=== PATIENT | female | born 1935 | race Caucasian/White ===

== ENCOUNTER 2017-02-02 09:07 | Emergency (ER) | payer MEDICARE ==
[2017-02-02 09:20] VITALS: BP 141/72; PULSE 69; RESP 18; TEMP 97.1
--- NOTE | 2017-02-02 09:35 | ED ---
General Adult HPI - General Chief complaint: Back Pain/Injury Stated complaint: fall at home Time Seen by Provider: 02/02/17 09:25 Source: patient, family, RN notes reviewed Mode of arrival: ambulatory Limitations: no limitations - History of Present Illness Initial comments: 81-year-old female presents to the emergency department with a chief complaint of right-sided rib pain. Patient states on she was given off a stepstool she was a step she felt into her cabinet to the right side. Patient states that she has pain right-sided rib she has pain when she pushes and pulls. She has pain now she sits down. Patient denies any nausea or vomiting with this. Patient states if she takes a big deep breath she was same pain as well. Patient was concerned that this does not see better so she thought that she should be evaluated. Patient denies any recent fever, chills, shortness of breath, chest pain, back pain, abdominal pain, nausea vomiting, numbness or tingling, dysuria or hematuria, constipation or diarrhea, headaches or visual changes, or any other current symptoms. - Related Data Home Medications Medication Instructions Recorded Confirmed Aspirin 81 mg PO DAILY 01/02/15 05/08/16 Biotene Lozenges 1 lozenge PO Q4H PRN 01/02/15 05/08/16 Biotin 5 mg PO DAILY 01/02/15 05/08/16 Calcium Carbonate/Vitamin D3 1 tab PO DAILY 01/02/15 05/08/16 [Calcium 600-Vit D3 400 Tablet] Hydroxychloroquine Sulfate 200 mg PO BID 01/02/15 05/08/16 [Plaquenil] Valsartan/Hydrochlorothiazide 1 tab PO DAILY 01/02/15 05/08/16 [Diovan Hct 80-12.5 mg Tablet] Carboxymethylcellulose Sodium 1 drop BOTH EYES BID PRN 11/13/15 05/08/16 [Refresh Tears] Previous Rx's Medication Instructions Recorded traMADol HCl [Ultram] 50 mg PO Q6H PRN #20 tab 02/02/17 Allergies Allergy/AdvReac Type Severity Reaction Status Date / Time amoxicillin Allergy Rash/Hives Verified 02/02/17 09:20 clindamycin Allergy Rash/Hives Verified 02/02/17 09:20 sulfamethoxazole Allergy Rash/Hives Verified 02/02/17 09:20 [From Bactrim] trimethoprim [From Bactrim] Allergy Rash/Hives Verified 02/02/17 09:20 Review of Systems ROS Statement: Those systems with pertinent positive or pertinent negative responses have been documented in the HPI. ROS Other: All systems not noted in ROS Statement are negative. Past Medical History Past Medical History: Hypertension, Pneumonia Additional Past Medical History / Comment(s): Sjogrens syndrome History of Any Multi-Drug Resistant Organisms: None Reported Past Surgical History: Hysterectomy Past Anesthesia/Blood Transfusion Reactions: No Reported Reaction Past Psychological History: No Psychological Hx Reported Smoking Status: Never smoker Past Alcohol Use History: Daily Past Drug Use History: None Reported - Past Family History Father Family Medical History: Chest Pain / Angina Mother Additional Family Medical History / Comment(s): lived to be 92yrs old General Exam Limitations: no limitations General appearance: alert, in no apparent distress Eye exam: Present: normal appearance, PERRL, EOMI. Absent: scleral icterus, conjunctival injection, periorbital swelling ENT exam: Present: normal exam, mucous membranes moist Neck exam: Present: normal inspection. Absent: tenderness, meningismus, lymphadenopathy Respiratory exam: Present: normal lung sounds bilaterally, chest wall tenderness (right lateral with associated ecchymosis). Absent: respiratory distress, wheezes, rales, rhonchi, stridor Cardiovascular Exam: Present: regular rate, normal rhythm, normal heart sounds. Absent: systolic murmur, diastolic murmur, rubs, gallop, clicks Extremities exam: Present: normal inspection, full ROM, normal capillary refill. Absent: tenderness, pedal edema, joint swelling, calf tenderness Back exam: Present: normal inspection, full ROM. Absent: tenderness Neurological exam: Present: alert, oriented X3 Psychiatric exam: Present: normal affect, normal mood Skin exam: Present: warm, dry, intact, normal color. Absent: rash Course Vital Signs 02/02/17 09:17 Temperature 97.1 F L Pulse Rate 69 Respiratory 18 Rate Blood Pressure 141/72 O2 Sat by Pulse 96 Oximetry Medical Decision Making - Medical Decision Making 81-year-old female presents emergency Department with a chief complaint of right -sided rib pain after a fall. At this time we will do an x-ray of the patient' s ribs. At this time patient x-rays have been reviewed. At this time there does not appear to be displaced rib fracture. This and we will treat the patient with medications to help with her pain. We did discuss follow-up return parameters all the questions. She stated that she understood and she is in agreement with this plan. All questions have been answered. She'll be discharged. - Radiology Data Radiology results: report reviewed, image reviewed Disposition Clinical Impression: Contusion of rib on right side Disposition: HOME SELF-CARE Condition: Stable Instructions: Rib Contusion (ED) Additional Instructions: Please use medication as discussed. Please follow up with family doctor if symptoms have not improved over the next two days. Please return to the emergency room if your symptoms increase or worsen or for any other concerns. Prescriptions: traMADol HCl [Ultram] 50 mg PO Q6H PRN #20 tab PRN Reason: Pain Referrals: Param Vazquez MD [Primary Care Provider] - 1-2 days Time of Disposition: 09:52
--- NOTE | 2017-02-02 09:45 | XR ---
EXAMINATION TYPE: XR ribs RT w pa chest x-ray , 3 VIEWS DATE OF EXAM ORDERED: 02/02/2017 HISTORY: Pain. COMPARISON: None. FINDINGS: The lungs are overinflated. The heart is enlarged. The lungs are clear. Pleural spaces are clear. No pneumothorax is seen. No displaced rib fracture is seen. IMPRESSION: 1. COPD 2. CARDIOMEGALY. 3. I DO NOT IDENTIFY A DISPLACED RIB FRACTURE AT THIS TIME.
== END 2017-02-02 10:07 | disposition home or self-care (01) ==
LOC: EC 09:07
DX: S20.211A Contusion of right front wall of thorax, initial encounter (principal); I10 Essential (primary) hypertension; Z79.82 Long term (current) use of aspirin; Z79.899 Other long term (current) drug therapy; Z88.0 Allergy status to penicillin; Z88.1 Allergy status to other antibiotic agents; W01.0XXA Fall on same level from slipping, tripping and stumbling without subsequent striking against object, initial encounter; Y92.009 Unspecified place in unspecified non-institutional (private) residence as the place of occurrence of the external cause
CPT/HCPCS: 99283

== ENCOUNTER → 2017-04-29 | Outpatient (CLI) | payer MEDICARE ==
--- NOTE | 2017-04-30 09:11 | MM ---
Reason for exam: screening (asymptomatic). Last mammogram was performed 1 year and 2 months ago. History: Patient is postmenopausal. Stereotactic core biopsy of the left breast, September 03, 2004. Took estrogen for 10 years beginning at age 48. Physical Findings: A clinical breast exam by your physician is recommended on an annual basis and results should be correlated with mammographic findings. MG 3D Screening Mammo W/Cad Bilateral CC and MLO view(s) were taken. Prior study comparison: March 06, 2016, bilateral MG 3d screening mammo w/cad. November 25, 2014, bilateral MG screening mammo w CAD. October 07, 2013, bilateral MG screening mammo w CAD. The breast tissue is heterogeneously dense. This may lower the sensitivity of mammography. Finding: There are typically benign vascular, dystrophic, round, linear calcifications in both breasts. There is no discrete abnormality. ASSESSMENT: Benign, BI-RAD 2 RECOMMENDATION: Routine screening mammogram of both breasts in 1 year.
== END | disposition home or self-care (01) ==
LOC: RADMAMWWP 07:07
PROVIDERS: ATTEND Obstetrics & Gynecology
DX: Z12.31 Encounter for screening mammogram for malignant neoplasm of breast (principal)
CPT/HCPCS: 77063; 77067

== ENCOUNTER → 2017-06-04 | Outpatient (CLI) | payer MEDICARE ==
--- NOTE | 2017-06-04 12:10 | BD ---
EXAMINATION TYPE: MG DEXA axial skeleton. DATE OF EXAM: 06/04/2017 COMPARISON: Disorder of bone. Postmenopausal female. Osteoporosis screening. CLINICAL HISTORY: 2014 Height: 4'10 Weight: 117 FRAX RISK QUESTIONS: Alcohol (3 or more units per day): no Family History (Parent hip fracture): yes Glucocorticoids (More than 3mos): no (Ex: prednisone, prednisolone, methylprednisolone, dexamethasone, and hydrocortisone). History of Fracture in Adulthood: no Secondary Osteoporosis: 1. Type 1 Diabetes: no 2. Hyperthyroidism: no 3. Menopause before 45: no 4. Malnutrition: no 5. Chronic liver disease: no Rheumatoid Arthritis: no Current Tobacco Use: no RISK FACTORS HISTORY OF: Postmenopausal woman: MEDICATIONS: Additional Medications: high blood pressure Additional History: EXAM MEASUREMENTS: Bone mineral densitometry was performed using the [employer]. Bone mineral density as measured about the Lumbar spine is: ----- L1-L4(G/cm2): 0.810 T Score Values are as follows: ----- L2: -3.2 ----- L3: -2.7 ----- L4: -2.8 ----- L1-L4: -3.1 Bone mineral density has: Decreased -4.4% since study of: 11/25/2014 Bone mineral density about the R hip (g/cm2): 0.817 Bone mineral density about the L hip (g/cm2): 0.698 T Score values are as follows: -----R Neck: -1.6 -----L Neck: -2.4 -----R Total: -0.8 -----L Total: -1.6 Bone mineral density has: Decreased -2.3% since study of: 11/25/2014 IMPRESSION: Osteoporosis (T Score less than -2.5) as noted by T Score values at the lumbar spine. There is increased fracture risk and therapy is usually indicated based on age. Re-Screen 1-2 years. NOTE: T-SCORE=SD OF THE YOUNG ADULT MEAN.
== END | disposition home or self-care (01) ==
LOC: RADBDWWP 08:39
PROVIDERS: ATTEND Obstetrics & Gynecology
DX: M81.0 Age-related osteoporosis without current pathological fracture (principal)
CPT/HCPCS: 77080

== ENCOUNTER → 2017-11-03 | Outpatient (CLI) | payer MEDICARE ==
--- NOTE | 2017-11-03 17:59 | XR ---
EXAMINATION TYPE: XR chest 2V DATE OF EXAM: 11/03/2017 COMPARISON: 02/02/2017 HISTORY: Cough TECHNIQUE: Frontal and lateral views of the chest are obtained. FINDINGS: There is some infiltrate at the right cardiac border that is probably in the right middle lobe. The other lung burton are clear. Thoracic aorta is atheromatous. There is no pleural effusion. Bony thorax is intact. IMPRESSION: New right middle lobe pneumonia compared to old exam.
== END | disposition home or self-care (01) ==
LOC: RADXRMAIN 16:34
PROVIDERS: ATTEND Internal Medicine
DX: J18.9 Pneumonia, unspecified organism (principal)
CPT/HCPCS: 71046

== ENCOUNTER → 2018-06-15 | Outpatient (CLI) | payer MEDICARE ==
--- NOTE | 2018-06-16 13:17 | MM ---
Reason for exam: screening (asymptomatic). Last mammogram was performed 1 year and 2 months ago. History: Patient is postmenopausal. Stereotactic core biopsy of the left breast, September 03, 2004. Took estrogen for 10 years beginning at age 48. Physical Findings: A clinical breast exam by your physician is recommended on an annual basis and results should be correlated with mammographic findings. MG 3D Screening Mammo W/Cad Bilateral CC and MLO view(s) were taken. Prior study comparison: April 29, 2017, bilateral MG 3d screening mammo w/cad. March 06, 2016, bilateral MG 3d screening mammo w/cad. The breast tissue is heterogeneously dense. This may lower the sensitivity of mammography. Benign appearing bilateral calcifications. No suspicious abnormality. No significant changes when compared with prior studies. ASSESSMENT: Benign, BI-RAD 2 RECOMMENDATION: Routine screening mammogram of both breasts in 1 year.
== END | disposition home or self-care (01) ==
LOC: RADMAMWWP 07:55
PROVIDERS: ATTEND Obstetrics & Gynecology
DX: Z12.31 Encounter for screening mammogram for malignant neoplasm of breast (principal)
CPT/HCPCS: 77063; 77067

== ENCOUNTER → 2020-01-28 | Outpatient (CLI) | payer MEDICARE ==
--- NOTE | 2020-01-31 08:43 | MM ---
Reason for exam: screening (asymptomatic). Last mammogram was performed 1 year and 7 months ago. History: Patient is postmenopausal. Stereotactic core biopsy of the left breast, September 03, 2004. Took estrogen for 10 years beginning at age 48. Physical Findings: A clinical breast exam by your physician is recommended on an annual basis and results should be correlated with mammographic findings. MG 3D Screening Mammo W/Cad Bilateral CC and MLO view(s) were taken. Prior study comparison: June 15, 2018, bilateral MG 3d screening mammo w/cad. April 29, 2017, bilateral MG 3d screening mammo w/cad. The breast tissue is heterogeneously dense. This may lower the sensitivity of mammography. Benign calcifications. No significant changes when compared with prior studies. ASSESSMENT: Benign, BI-RAD 2 RECOMMENDATION: Routine screening mammogram of both breasts in 1 year.
== END | disposition home or self-care (01) ==
LOC: RADMAMWWP 07:08
PROVIDERS: ATTEND Obstetrics & Gynecology
DX: Z12.31 Encounter for screening mammogram for malignant neoplasm of breast (principal)
CPT/HCPCS: 77063; 77067

== ENCOUNTER → 2020-08-10 | Outpatient (CLI) | payer MEDICARE ==
--- NOTE | 2020-08-10 14:08 | CT ---
EXAMINATION TYPE: CT abdomen pelvis wo con DATE OF EXAM: 08/10/2020 HISTORY: LLQ pain CT DLP: 223.2 mGycm. Automated Exposure Control for Dose Reduction was Utilized. TECHNIQUE: CT scan of the abdomen and pelvis is performed without oral or IV contrast. COMPARISON: NONE FINDINGS: Within the limitations of a non-contrast study, the following observations are made. LUNG BASES: Cardiomegaly is present. Coronary artery calcification in the RCA distribution. LIVER/GB: There are 2 calcified gallstones measuring 1.6 cm in diameter. No surrounding inflammatory change. PANCREAS: No significant abnormality is seen. SPLEEN: No significant abnormality is seen. ADRENALS: No significant abnormality is seen. KIDNEYS: No renal stones or hydronephrosis seen bilaterally. Mildly distended bladder. BOWEL: Suboptimal evaluation of bowel without enteric contrast. No suspicious small or large bowel di latation. Moderate to severe fecal prominence in the cecum which is wandering into the anterior midab domen axial image 38. There is [id number] diffuse colonic fecal prominence otherwise. Mild scat tered colonic diverticula with slightly more prominent diverticulosis in the sigmoid colon. GENITAL ORGANS: Uterus is surgically absent or markedly atrophic. Scattered right-sided pelvic phlebo liths. LYMPH NODES: No greater than 1cm abdominal or pelvic lymph nodes are appreciated. OSSEOUS STRUCTURES: No significant abnormality is seen. OTHER: Moderate to severe calcified plaque of the aorta extends into branch vessels. Mild to moderate narrowing of both hip joints with mild acetabular spurring. IMPRESSION: Colonic diverticulosis without CT evidence for acute diverticulitis. Moderate diffuse col onic fecal stasis. No bowel obstruction.
== END | disposition home or self-care (01) ==
LOC: RADCTMAIN 13:17
PROVIDERS: ATTEND Internal Medicine
DX: K57.30 Diverticulosis of large intestine without perforation or abscess without bleeding (principal); K59.89 Other specified functional intestinal disorders
CPT/HCPCS: 74176

== ENCOUNTER → 2021-01-23 | Outpatient (CLI) | payer MEDICARE ==
--- NOTE | 2021-01-23 15:45 | XR ---
EXAMINATION TYPE: XR chest 2V DATE OF EXAM: 01/23/2021 COMPARISON: 11/03/2017 HISTORY: 85-year-old female R05, cough TECHNIQUE: Frontal and lateral views FINDINGS: Heart upper limits of normal in size. Scattered metastatic calcifications within the aorta. Biapical pleural-parenchymal scarring. Hyperinflation. Mild interstitial prominence is unchanged. No consolida tion or pleural effusion. Tiny Bochdalek hernia posteriorly in the lower lungs on the lateral view. IMPRESSION: COPD and chronic changes. No definite acute process.
[2021-01-23 18:59] LABS: Basophils # (A) 0.02 X 10*3/uL (0.00-0.10); Basophils % (A) 0.3 %; Eosinophils # (A) 0.17 X 10*3/uL (0.04-0.35); Eosinophils % (A) 2.6 %; HCT 39.7 % (37.2-46.3); HGB 12.9 g/dL (12.0-15.0); Lymphocytes # (A) 1.47 X 10*3/uL (0.90-5.00); Lymphocytes % (A) 22.1 %; MCH 30.6 pg (27.0-32.0); MCHC 32.5 g/dL (32.0-37.0); MCV 94.1 fL (80.0-97.0); Mean Platelet Volume 11.1 fL (9.5-12.2); Monocytes # (A) 0.66 X 10*3/uL (0.20-1.00); Monocytes % (A) 9.9 %; Neutrophils # (A) 4.29 X 10*3/uL (1.80-7.70); Neutrophils % (A) 64.6 %; Platelet Count 239 X 10*3/uL (140-440); RBC 4.22 X 10*6/uL (4.10-5.20); RDW 12.2 % (11.5-14.5); WBC 6.64 X 10*3/uL (4.50-10.00)
[2021-01-23 22:00] LABS: Erythrocyte Sedimentation Rate 44 mm/Hr (0-30)
[2021-01-24 21:49] LABS: Protein, Total 6.9 g/dL (6.2-8.2)
[2021-01-24 22:43] LABS: African American GFR (CKD) 115.7 (60.0-200.0); Anion Gap 14.9 mmol/L (4.00-12.00); Blood Urea Nitrogen 11.7 mg/dL (9.0-27.0); Calcium 10.4 mg/dL (8.7-10.3); Carbon Dioxide 24.6 mmol/L (21.6-31.8); Non-African American GFR(CKD) 99.8 (60.0-200.0); Potassium 3.6 mmol/L (3.5-5.5)
== END | disposition home or self-care (01) ==
LOC: LABWHC1 13:09
PROVIDERS: ATTEND Internal Medicine Rheumatology
DX: M06.4 Inflammatory polyarthropathy (principal); M81.0 Age-related osteoporosis without current pathological fracture; J44.9 Chronic obstructive pulmonary disease, unspecified; Z79.01 Long term (current) use of anticoagulants
CPT/HCPCS: 36415; 71046; 80051; 82306; 82310; 82565; 82784; 82787; 84165; 84443; 84450; 84460; 84520; 85025; 85652; 86140

== ENCOUNTER → 2021-02-05 | Outpatient (CLI) | payer MEDICARE ==
--- NOTE | 2021-02-05 15:02 | BD ---
EXAMINATION TYPE: Axial Bone Density DATE OF EXAM: 02/05/2021 COMPARISON: NONE CLINICAL HISTORY: M [age] Height: 4 FT 10 IN Weight: 111 FRAX RISK QUESTIONS: Alcohol (3 or more units per day): NO Family History (Parent hip fracture): YES Glucocorticoids (More than 3mos): NO (Ex: prednisone, prednisolone, methylprednisolone, dexamethasone, and hydrocortisone). History of Fracture in Adulthood: NO Secondary Osteoporosis: 1. Type 1 Diabetes: NO 2. Hyperthyroidism: NO 3. Menopause before 45: NO 4. Malnutrition: NO 5. Chronic liver disease: NO Rheumatoid Arthritis: NO Current Tobacco Use: NO RISK FACTORS HISTORY OF: Surgery to Spine/Hip(right/left)/Wrist (right/left): NO Family History of Osteoporosis: NO Active: YES Diet low in dairy products/other sources of calcium: NO Postmenopausal woman: AGE 48 Take estrogen and/or progesterone medications: TOOK APPROX 3 YEARS Lost more than 2 inches in height since high school: NO MEDICATIONS: Additional Medications: BLOOD PRESSURE MEDS, EYE DROPS FOR GLAUCOMA, Additional History: EXAM MEASUREMENTS: Bone mineral densitometry was performed using the [employer]. Bone mineral density as measured about the Lumbar spine is: ----- L1-L4(G/cm2): 0.898 T Score Values are as follows: ----- L2: -3.1 ----- L3: -2.2 ----- L4: -1.5 ----- L1-L4: -2.3 Bone mineral density has: INCREASED 10.0 % since study of: 2018 Bone mineral density about the R hip (g/cm2): 0.734 Bone mineral density about the L hip (g/cm2): 0.688 T Score values are as follows: -----R Neck: -2.2 -----L Neck: -2.5 -----R Total: -1.6 -----L Total: -1.3 Bone mineral density has: DECREASED -4.2 % since study of: 2018 IMPRESSION: Osteopenia is borderline (T Score between -2.5 and -1). There is slightly increased risk of fracture and the patient may be considered for treatment. Re-Screen 2-5 years. NOTE: T-SCORE=SD OF THE YOUNG ADULT MEAN.
== END | disposition home or self-care (01) ==
LOC: RADBDWWP 10:48
PROVIDERS: ATTEND Internal Medicine Rheumatology
DX: M85.89 Other specified disorders of bone density and structure, multiple sites (principal); Z78.0 Asymptomatic menopausal state
CPT/HCPCS: 77080

== ENCOUNTER → 2021-05-18 | Outpatient (CLI) | payer MEDICARE ==
[2021-05-19 01:13] LABS: African American GFR (CKD) 91.6 (60.0-200.0); Calcium 10.2 mg/dL (8.7-10.3)
[2021-05-19 01:15] LABS: Basophils # (A) 0.02 X 10*3/uL (0.00-0.10); Basophils % (A) 0.3 %; Eosinophils # (A) 0.22 X 10*3/uL (0.04-0.35); Eosinophils % (A) 3.3 %; HCT 37.3 % (37.2-46.3); HGB 11.6 g/dL (12.0-15.0); Lymphocytes # (A) 1.53 X 10*3/uL (0.90-5.00); Lymphocytes % (A) 23.2 %; MCH 27.8 pg (27.0-32.0); MCHC 31.1 g/dL (32.0-37.0); MCV 89.4 fL (80.0-97.0); Mean Platelet Volume 11.7 fL (9.5-12.2); Monocytes # (A) 0.76 X 10*3/uL (0.20-1.00); Monocytes % (A) 11.5 %; Neutrophils # (A) 4.04 X 10*3/uL (1.80-7.70); Neutrophils % (A) 61.4 %; Platelet Count 274 X 10*3/uL (140-440); RBC 4.17 X 10*6/uL (4.10-5.20); RDW 14.3 % (11.5-14.5); WBC 6.59 X 10*3/uL (4.50-10.00)
[2021-05-19 02:20] LABS: Erythrocyte Sedimentation Rate 62 mm/Hr (0-30)
[2021-05-19 04:35] LABS: C Reactive Protein 1.5 mg/dL (0.00-0.80)
== END | disposition home or self-care (01) ==
LOC: LABWHC1 13:58
PROVIDERS: ATTEND Internal Medicine Rheumatology
DX: M06.4 Inflammatory polyarthropathy (principal); M81.0 Age-related osteoporosis without current pathological fracture; M25.50 Pain in unspecified joint
CPT/HCPCS: 36415; 82306; 82310; 82565; 84450; 84460; 84520; 85025; 85652; 86140

== ENCOUNTER → 2021-06-20 | Outpatient (CLI) | payer MEDICARE ==
--- NOTE | 2021-06-20 16:07 | XR ---
EXAMINATION TYPE: XR chest 2V DATE OF EXAM: 06/20/2021 COMPARISON: 01/15/2021 INDICATION: Short of breath cough x3 months TECHNIQUE: Single frontal view of the chest is obtained. FINDINGS: The heart size is normal. The pulmonary vasculature is normal. The lungs are clear. There is hyperinflation with increased AP diameter and flattened diaphragms. Correlate for COPD. IMPRESSION: 1. No acute pulmonary process. 2. COPD.
== END | disposition home or self-care (01) ==
LOC: RADXRMAIN 14:59
PROVIDERS: ATTEND Internal Medicine
DX: J44.9 Chronic obstructive pulmonary disease, unspecified (principal)
CPT/HCPCS: 71046

== ENCOUNTER → 2021-07-02 | Outpatient (CLI) | payer MEDICARE ==
[~2021-07-02] MED LIST: SODIUM CHLORIDE 0.9% 500 ML 500 ML in EMPTY BAG 1 BAG IV PRN; ZOLEDRONIC ACID 5 MG in SODIUM CHLORIDE 0.9% 100 ML IV NR
[2021-07-02 10:15] VITALS: BP 139/64; PULSE 92; RESP 16; TEMP 98
== END ==
LOC: PROCWHC3 09:55
PROVIDERS: ATTEND Internal Medicine Rheumatology
DX: M81.0 Age-related osteoporosis without current pathological fracture (principal); Z88.1 Allergy status to other antibiotic agents; Z88.2 Allergy status to sulfonamides
CPT/HCPCS: 96365; J3489

== ENCOUNTER 2021-10-28 22:59 | Inpatient (IN) | payer MEDICARE ==
[2021-10-29] MEDS ORDERED: MORPHINE SULFATE 4 MG/ML SYRINGE IV STA (02:05)
[2021-10-29 02:16] LABS: ALT 13 U/L (4-34); AST 29 U/L (14-36); African American GFR (CKD) >90 (>60 ml/min/1.73 sqM); Albumin 3.2 g/dL (3.5-5.0); Alkaline Phosphatase 96 U/L (38-126); Amylase 41 U/L (30-110); Anion Gap 8 mmol/L; Basophils % (A) 0 %; Blood Urea Nitrogen 20 mg/dL (7-17); Calcium 8.7 mg/dL (8.4-10.2); Carbon Dioxide 27 mmol/L (22-30); Chloride 93 mmol/L (98-107); Eosinophils # (A) 0.1 k/uL (0-0.7); Eosinophils % (A) 1 %; Glucose 125 mg/dL (74-99); HCT 40.2 % (34.0-46.0); HGB 13.4 gm/dL (11.4-16.0); Lipase 19 U/L (23-300); Lymphocytes # (A) 0.7 k/uL (1.0-4.8); Lymphocytes % (A) 4 %; MCH 28.7 pg (25.0-35.0); MCHC 33.2 g/dL (31.0-37.0); MCV 86.5 fL (80.0-100.0); Mean Platelet Volume 7.7; Monocytes # (A) 0.9 k/uL (0-1.0); Monocytes % (A) 5 %; Neutrophils # (A) 17.2 k/uL (1.3-7.7); Neutrophils % (A) 90 %; Non-African American GFR(CKD) 89 (>60 ml/min/1.73 sqM); Platelet Count 289 k/uL (150-450); Potassium 3.2 mmol/L (3.5-5.1); RBC 4.65 m/uL (3.80-5.40); RDW 13.7 % (11.5-15.5); Sodium 128 mmol/L (137-145); Total Bilirubin 0.7 mg/dL (0.2-1.3); Total Protein 6.8 g/dL (6.3-8.2); WBC 19.1 k/uL (3.8-10.6)
[2021-10-29 02:28] LABS: C Reactive Protein 15.8 mg/dL (<1.0)
--- NOTE | 2021-10-29 02:48 | XR ---
EXAM: XR Abdomen, 2 Views CLINICAL HISTORY: ITS.REASON XR Reason: constipation, abdominal pain TECHNIQUE: Frontal view of the abdomen/pelvis with upright view of the abdomen. COMPARISON: No relevant prior studies available. FINDINGS: Intraperitoneal space: No free air. Gastrointestinal tract: Mildly dilated loops of small bowel with multiple air-fluid levels. Bones/joints: No acute findings. IMPRESSION: Dilated loops of small bowel with multiple air-fluid levels suspicious for small bowel obstruction.
[2021-10-29] MEDS ORDERED: ONDANSETRON 4 MG/2 ML VIAL IVP PRN (05:23)
[2021-10-29] MEDS ORDERED: MORPHINE SULFATE 4 MG/ML SYRINGE IV PRN (05:23)
[2021-10-29] MEDS ORDERED: NALOXONE 0.4 MG/ML 1 ML VIAL IV PRN (05:23)
--- NOTE | 2021-10-29 07:11 | CT ---
EXAMINATION TYPE: CT abdomen pelvis wo con CT DLP: 282 mGycm, Automated exposure control for dose reduction was used. DATE OF EXAM: 10/29/2021 5:50 AM COMPARISON: CT abdomen pelvis most recent from 08/10/2020 . CLINICAL INDICATION:Female, 86 years old with history of bowel obstruction; TECHNIQUE: Standard CT of the abdomen and pelvis following the administration of 100 cc of Isovue 3 00 IV contrast material. Coronal and sagittal reformats were performed. FINDINGS: LOWER CHEST: Unremarkable ABDOMEN LIVER: Unremarkable GALLBLADDER AND BILE DUCTS: Layering increased densities within the lumen consistent with gallstones are present. PANCREAS: Unremarkable. SPLEEN: Unremarkable. ADRENAL GLANDS: Unremarkable. KIDNEYS AND URETERS: No evidence of hydronephrosis or renal calculus. The ureters are unremarkable. PELVIS BLADDER: Bladder is distended REPRODUCTIVE: The uterus is atrophic or surgically absent ABDOMEN & PELVIS STOMACH AND BOWEL: Evaluation limited without IV and oral contrast. Multiple loops of bowel throughou t the abdomen aren't dilated air-fluid levels. A short segment of small bowel in the lower abdomen do es demonstrate circumferential wall thickening which may just be due to complete distention. No defin itive transition point identified. The colon and distal ileum are relatively nondistended. Multiple s cattered colonic diverticula present. Small hiatal hernia is present. PERITONEUM: No evidence of pneumoperitoneum. Trace fluid is seen from the liver. VASCULATURE: Severe atherosclerotic calcifications are present throughout the abdominal aorta and its branches. No evidence of aortic aneurysm. MUSCULOSKELETAL: No acute osseous abnormalities. Multilevel disc degeneration changes most pronounced at L2 superior endplate with Schmorl's node present. LYMPH NODES: No gross evidence for lymphadenopathy. SOFT TISSUE/ABDOMINAL WALL: Unremarkable IMPRESSION: 1. Multiple dilated loops of small bowel with air-fluid levels and small bowel feces in the presence of a nondistended colon and distal ileum is concerning for partial versus early complete bowel obstr uction. Dedicated small bowel follow-through is recommended to rule out obstruction. No definitive tr ansition point identified. 2. Colonic diverticulosis. 3. Cholelithiasis. 4. Small hiatal hernia. 5. Trace ascites. 6. Cardiomegaly.
--- NOTE | 2021-10-29 07:22 | ED ---
Abdominal Pain HPI - General Chief Complaint: Abdominal Pain Stated Complaint: Abdominal Pain Time Seen by Provider: 10/29/21 00:30 Source: patient Mode of arrival: ambulatory Limitations: no limitations - History of Present Illness Initial Comments: 's patient is an 86-year-old woman with history of Sjogren's syndrome, who presents with complaint that she has been having lower abdominal pain and bloating going back up to 3 days now. Patient states also that she does not feel like she is passing normal bowel movements. She did have a bowel movement yesterday but it did not seem normal. She is passing flatus. She is having nausea and distention. No change in urination. MD Complaint: abdominal pain Onset/Timin -: days(s) Location: LLQ, RLQ Radiation: none Migration to: no migration Severity: moderate Quality: cramping, fullness Consistency: constant Improves With: nothing Worsens With: nothing Associated Symptoms: nausea, constipation - Related Data Home Medications Medication Instructions Recorded Confirmed Hydroxychloroquine Sulfate 400 mg PO DAILY 01/02/15 10/29/21 [Plaquenil] Valsartan/Hydrochlorothiazide 1 tab PO DAILY 01/02/15 10/29/21 [Diovan Hct 80-12.5 mg Tablet] Allergies Allergy/AdvReac Type Severity Reaction Status Date / Time amoxicillin Allergy Rash/Hives Verified 10/29/21 07:16 clindamycin Allergy Rash/Hives Verified 10/29/21 07:16 sulfamethoxazole Allergy Rash/Hives Verified 10/29/21 07:16 [From Bactrim] trimethoprim [From Bactrim] Allergy Rash/Hives Verified 10/29/21 07:16 Review of Systems ROS Statement: Those systems with pertinent positive or pertinent negative responses have been documented in the HPI. ROS Other: All systems not noted in ROS Statement are negative. Constitutional: Denies: fever, chills Respiratory: Denies: cough, dyspnea Cardiovascular: Denies: chest pain, palpitations, edema Gastrointestinal: Reports: abdominal pain, nausea, constipation. Denies: vomiting, diarrhea, melena, hematochezia Genitourinary: Denies: dysuria, hematuria Musculoskeletal: Denies: back pain Skin: Denies: rash Neurological: Denies: headache, weakness, numbness Past Medical History Past Medical History: Hypertension, Pneumonia Additional Past Medical History / Comment(s): Sjogrens syndrome History of Any Multi-Drug Resistant Organisms: None Reported Past Surgical History: Hysterectomy Past Anesthesia/Blood Transfusion Reactions: No Reported Reaction Past Psychological History: No Psychological Hx Reported Smoking Status: Never smoker Past Alcohol Use History: Occasional Past Drug Use History: None Reported - Past Family History Father Family Medical History: Chest Pain / Angina Mother Additional Family Medical History / Comment(s): lived to be 92yrs old General Exam Limitations: no limitations General appearance: alert, in no apparent distress Head exam: Present: atraumatic, normocephalic Eye exam: Present: normal appearance. Absent: scleral icterus, conjunctival injection ENT exam: Present: normal oropharynx Neck exam: Present: normal inspection Respiratory exam: Present: normal lung sounds bilaterally. Absent: respiratory distress, wheezes, rales, rhonchi, stridor Cardiovascular Exam: Present: regular rate, normal rhythm, normal heart sounds. Absent: systolic murmur, diastolic murmur, rubs, gallop GI/Abdominal exam: Present: soft, tenderness (Mild lower abdominal tenderness without rebound or guarding), diminished bowel sounds. Absent: distended, guarding, rebound, rigid, mass, pulsatile mass, hernia Extremities exam: Present: normal inspection, normal capillary refill. Absent: pedal edema, calf tenderness Back exam: Present: normal inspection. Absent: CVA tenderness (R), CVA tende rness (L) Neurological exam: Present: alert Skin exam: Present: warm, dry, intact, normal color. Absent: rash Course Vital Signs 10/28/21 10/29/21 23:01 06:23 Temperature 97.7 F Pulse Rate 99 72 Respiratory 22 18 Rate Blood Pressure 130/70 129/68 O2 Sat by Pulse 97 96 Oximetry Medical Decision Making - Medical Decision Making Patient is an 86-year-old woman presenting with abdominal pain and found to have distended small bowel on the x-ray. She is sent for computed tomography scan which also shows bowel obstruction though no definite etiology. Case is discussed with Dr. Antonia roa who will admit the patient and requests consult with Dr. Vega for surgery. - Lab Data Result diagrams: 10/29/21 01:46 10/29/21 01:46 Lab Results 10/29/21 10/29/21 10/29/21 Range/Units 01:46 01:46 01:46 WBC 19.1 H (3.8-10.6) k/uL RBC 4.65 (3.80-5.40) m/uL Hgb 13.4 (11.4-16.0) gm/dL Hct 40.2 (34.0-46.0) % MCV 86.5 (80.0-100.0) fL MCH 28.7 (25.0-35.0) pg MCHC 33.2 (31.0-37.0) g/dL RDW 13.7 (11.5-15.5) % Plt Count 289 (150-450) k/uL MPV 7.7 Neutrophils % 90 % Lymphocytes % 4 % Monocytes % 5 % Eosinophils % 1 % Basophils % 0 % Neutrophils # 17.2 H (1.3-7.7) k/uL Lymphocytes # 0.7 L (1.0-4.8) k/uL Monocytes # 0.9 (0-1.0) k/uL Eosinophils # 0.1 (0-0.7) k/uL Basophils # 0.0 (0-0.2) k/uL Sodium 128 L (137-145) mmol/L Potassium 3.2 L (3.5-5.1) mmol/L Chloride 93 L (98-107) mmol/L Carbon Dioxide 27 (22-30) mmol/L Anion Gap 8 mmol/L BUN 20 H (7-17) mg/dL Creatinine 0.49 L (0.52-1.04) mg/dL Est GFR (CKD-EPI)AfAm >90 (>60 ml/min/1.73 sqM) Est GFR (CKD-EPI)NonAf 89 (>60 ml/min/1.73 sqM) Glucose 125 H (74-99) mg/dL Plasma Lactic Acid Teja 1.3 (0.7-2.0) mmol/L Calcium 8.7 (8.4-10.2) mg/dL Total Bilirubin 0.7 (0.2-1.3) mg/dL AST 29 (14-36) U/L ALT 13 (4-34) U/L Alkaline Phosphatase 96 (38-126) U/L C-Reactive Protein 15.8 H (<1.0) mg/dL Total Protein 6.8 (6.3-8.2) g/dL Albumin 3.2 L (3.5-5.0) g/dL Amylase 41 (30-110) U/L Lipase 19 L (23-300) U/L Disposition Clinical Impression: Abdominal pain, Bowel obstruction Disposition: ADMITTED IP TO THIS HOSP Condition: Fair Is patient prescribed a controlled substance at d/c from ED?: No
[2021-10-29] MEDS ORDERED: SODIUM CHLORIDE 0.9% 500 ML 500 ML IV STA (07:23)
[2021-10-29] MEDS: SODIUM CHLORIDE 0.9% 1,000 ML IV SCH ×3 (07:43→20:53)
[2021-10-29] MEDS ORDERED: VALSARTAN 80 MG TAB PO SCH (09:00)
[2021-10-29] MEDS ORDERED: hydroCHLOROthiazide 12.5 MG CAP PO SCH (09:00)
[2021-10-29] MEDS: FAMOTIDINE 20 MG/2 ML VIAL IV SCH ×2 (09:39→20:49)
[2021-10-29 09:50] LABS: Appearance,Urine Clear (Clear); Bilirubin,Urine Negative (Negative); Blood,Urine Large (Negative); Color,Urine Yellow; Glucose,Urine (UA) Negative (Negative); Ketones,Urine 2+ (Negative); Leukocyte Esterase,Urine Negative (Negative); Mucus,Urine Occasional /hpf; Nitrite,Urine Negative (Negative); Protein,Urine 1+ (Negative); RBC,Urine 76 /hpf (0-5); Specific Gravity,Urine 1.018 (1.001-1.035); Squamous Epithelial Cell,Urine 1 /hpf (0-4); Urobilinogen,Urine <2.0 mg/dL (<2.0); WBC,Urine 3 /hpf (0-5)
--- NOTE | 2021-10-29 10:13 | P.GSCN ---
History of Present Illness Consult date: 10/29/21 Reason for Consult: Small bowel obstruction History of present illness: Is an 86-year-old female with complaints of abdominal pain and nausea. Patient's workup mentioned. Her CAT scan suggestive of a small bowel obstruction. Past Medical History Past Medical History: Hypertension, Pneumonia Additional Past Medical History / Comment(s): Sjogrens syndrome History of Any Multi-Drug Resistant Organisms: None Reported Past Surgical History: Hysterectomy Past Anesthesia/Blood Transfusion Reactions: No Reported Reaction Past Psychological History: No Psychological Hx Reported Smoking Status: Never smoker Past Alcohol Use History: Occasional Past Drug Use History: None Reported - Past Family History Father Family Medical History: Chest Pain / Angina Mother Additional Family Medical History / Comment(s): lived to be 92yrs old Medications and Allergies Home Medications Medication Instructions Recorded Confirmed Type Hydroxychloroquine Sulfate 400 mg PO DAILY 01/02/15 10/29/21 History [Plaquenil] Valsartan/Hydrochlorothiazide 1 tab PO DAILY 01/02/15 10/29/21 History [Diovan Hct 80-12.5 mg Tablet] Allergies Allergy/AdvReac Type Severity Reaction Status Date / Time amoxicillin Allergy Rash/Hives Verified 10/29/21 07:16 clindamycin Allergy Rash/Hives Verified 10/29/21 07:16 sulfamethoxazole Allergy Rash/Hives Verified 10/29/21 07:16 [From Bactrim] trimethoprim [From Bactrim] Allergy Rash/Hives Verified 10/29/21 07:16 Surgical - Exam Vital Signs Temp Pulse Resp BP Pulse Ox 97.7 F 99 22 130/70 97 10/28/21 23:01 10/28/21 23:01 10/28/21 23:01 10/28/21 23:01 10/28/21 23:01 - General well developed, well nourished, no distress - Eyes PERRL - ENT normal pinna - Neck no masses - Respiratory normal expansion - Cardiovascular Rhythm: regular - Abdomen Abdomen: soft, non tender Results - Labs 10/29/21 01:46 10/29/21 01:46 Abnormal Lab Results - Last 24 Hours (Table) 10/29/21 10/29/21 10/29/21 Range/Units 01:46 01:46 09:30 WBC 19.1 H (3.8-10.6) k/uL Neutrophils # 17.2 H (1.3-7.7) k/uL Lymphocytes # 0.7 L (1.0-4.8) k/uL Sodium 128 L (137-145) mmol/L Potassium 3.2 L (3.5-5.1) mmol/L Chloride 93 L (98-107) mmol/L BUN 20 H (7-17) mg/dL Creatinine 0.49 L (0.52-1.04) mg/dL Glucose 125 H (74-99) mg/dL C-Reactive Protein 15.8 H (<1.0) mg/dL Albumin 3.2 L (3.5-5.0) g/dL Lipase 19 L (23-300) U/L Urine Protein 1+ H (Negative) Urine Ketones 2+ H (Negative) Urine Blood Large H (Negative) Urine RBC 76 H (0-5) /hpf Urine Mucus Occasional H (None) /hpf Diabetes panel 10/29/21 Range/Units 01:46 Sodium 128 L (137-145) mmol/L Potassium 3.2 L (3.5-5.1) mmol/L Chloride 93 L (98-107) mmol/L Carbon Dioxide 27 (22-30) mmol/L BUN 20 H (7-17) mg/dL Creatinine 0.49 L (0.52-1.04) mg/dL Glucose 125 H (74-99) mg/dL Calcium 8.7 (8.4-10.2) mg/dL AST 29 (14-36) U/L ALT 13 (4-34) U/L Alkaline Phosphatase 96 (38-126) U/L Total Protein 6.8 (6.3-8.2) g/dL Albumin 3.2 L (3.5-5.0) g/dL Calcium panel 10/29/21 Range/Units 01:46 Calcium 8.7 (8.4-10.2) mg/dL Albumin 3.2 L (3.5-5.0) g/dL Pituitary panel 10/29/21 Range/Units 01:46 Sodium 128 L (137-145) mmol/L Potassium 3.2 L (3.5-5.1) mmol/L Chloride 93 L (98-107) mmol/L Carbon Dioxide 27 (22-30) mmol/L BUN 20 H (7-17) mg/dL Creatinine 0.49 L (0.52-1.04) mg/dL Glucose 125 H (74-99) mg/dL Calcium 8.7 (8.4-10.2) mg/dL Adrenal panel 10/29/21 Range/Units 01:46 Sodium 128 L (137-145) mmol/L Potassium 3.2 L (3.5-5.1) mmol/L Chloride 93 L (98-107) mmol/L Carbon Dioxide 27 (22-30) mmol/L BUN 20 H (7-17) mg/dL Creatinine 0.49 L (0.52-1.04) mg/dL Glucose 125 H (74-99) mg/dL Calcium 8.7 (8.4-10.2) mg/dL Total Bilirubin 0.7 (0.2-1.3) mg/dL AST 29 (14-36) U/L ALT 13 (4-34) U/L Alkaline Phosphatase 96 (38-126) U/L Total Protein 6.8 (6.3-8.2) g/dL Albumin 3.2 L (3.5-5.0) g/dL Assessment and Plan Assessment: Small bowel obstruction. Patient will have a Weeks catheter placed to monitor urine output. She'll remain nothing by mouth. The patient is not currently complaining of any nausea. If she has any nausea a nasogastric tube be placed. She'll be closely observed.
[2021-10-29] MEDS ORDERED: Potassium Replacement Protocol 1 EACH MISC MISCELLANE PRN (10:45)
[2021-10-29] MEDS: POTASSIUM CHLORIDE 10 MEQ in WATER FOR INJECTION 1 100ML.BAG IVPB SCH ×4 (11:16→16:06)
--- NOTE | 2021-10-29 11:35 | P.HPIM ---
History of Present Illness This is a pleasant 86 years old female with past medical history of hypertension,Sjogrens syndrome Patient presents because of left lower quadrant abdominal pain about 10/10, currently/10 in severity with no nausea vomiting or diarrhea. No chest pain or dyspnea. No change in urine habits or dysuria. Currently she has a Weeks ca theter. She denies smoking, alcohol or illicit tracts She's been afebrile. mild leukocytosis of 19.1, risks of cbc is unremarkable. sodium 128, potassium 3.2. lfts are unremarkable. urine analysis showing 2+ ketones large blood. CT of the abdomen and pelvis without contrast, which involved multiple dilated loops of small bowel with air-fluid levels small bowel feces in the presents of a nondistended colon distal ileum with significant other for partial versus early complete bowel obstruction Review of Systems Review of systems CONSTITUTIONAL: No fever, no malaise, no fatigue. HEENT: No recent visual problems or hearing problems. Denied any sore throat. CARDIOVASCULAR: No orthopnea, PND, no palpitations, no syncope. PULMONARY: No shortness of breath, no cough, no hemoptysis. GASTROINTESTINAL: No diarrhea, no nausea, no vomiting, Normoactive bowel sounds. NEUROLOGICAL: No headaches, no weakness, no numbness. HEMATOLOGICAL: Denies any bleeding or petechiae. GENITOURINARY: Denies any burning micturition, frequency, or urgency. MUSCULOSKELETAL/RHEUMATOLOGICAL: Denies any joint pain, swelling, or any muscle pain. ENDOCRINE: Denies any polyuria or polydipsia. Past Medical History Past Medical History: Hypertension, Pneumonia Additional Past Medical History / Comment(s): Sjogrens syndrome History of Any Multi-Drug Resistant Organisms: None Reported Past Surgical History: Hysterectomy Past Anesthesia/Blood Transfusion Reactions: No Reported Reaction Past Psychological History: No Psychological Hx Reported Smoking Status: Never smoker Past Alcohol Use History: Occasional Past Drug Use History: None Reported - Past Family History Father Family Medical History: Chest Pain / Angina Mother Additional Family Medical History / Comment(s): lived to be 92yrs old Medications and Allergies Home Medications Medication Instructions Recorded Confirmed Type Hydroxychloroquine Sulfate 400 mg PO DAILY 01/02/15 10/29/21 History [Plaquenil] Valsartan/Hydrochlorothiazide 1 tab PO DAILY 01/02/15 10/29/21 History [Diovan Hct 80-12.5 mg Tablet] Allergies Allergy/AdvReac Type Severity Reaction Status Date / Time amoxicillin Allergy Rash/Hives Verified 10/29/21 07:16 clindamycin Allergy Rash/Hives Verified 10/29/21 07:16 sulfamethoxazole Allergy Rash/Hives Verified 10/29/21 07:16 [From Bactrim] trimethoprim [From Bactrim] Allergy Rash/Hives Verified 10/29/21 07:16 Physical Exam Vitals: Vital Signs Temp Pulse Pulse Resp BP BP Pulse Ox 10/29/21 08:00 98.2 F 105 H 121/73 92 L 10/29/21 06:23 72 18 129/68 96 10/28/21 23:01 97.7 F 99 22 130/70 97 Intake and Output 10/28/21 10/29/21 10/29/21 22:59 06:59 14:59 Other: Voiding Method Indwelling Catheter Weight 45.359 kg 45.359 kg GENERAL: The patient is alert and oriented x3, not in any acute distress. Well developed, well nourished. HEENT: Pupils are round and equally reacting to light. EOMI. No scleral icterus. No conjunctival pallor. Normocephalic, atraumatic. No pharyngeal erythema. No thyromegaly. CARDIOVASCULAR: S1 and S2 present. No murmurs, rubs, or gallops. PULMONARY: Chest is clear to auscultation, no wheezing or crackles. -ABDOMEN: Soft, mild LLQ tenderness, no rebound, nondistended, normoactive bowel sounds. No palpable organomegaly. MUSCULOSKELETAL: No joint swelling or deformity. EXTREMITIES: No cyanosis, clubbing, or pedal edema. NEUROLOGICAL: Gross neurological examination did not reveal any focal deficits. SKIN: No rashes. no petechiae. Results CBC & Chem 7: 10/29/21 01:46 10/29/21 01:46 Labs: Abnormal Lab Results - Last 24 Hours (Table) 10/29/21 10/29/21 10/29/21 Range/Units 01:46 01:46 09:30 WBC 19.1 H (3.8-10.6) k/uL Neutrophils # 17.2 H (1.3-7.7) k/uL Lymphocytes # 0.7 L (1.0-4.8) k/uL Sodium 128 L (137-145) mmol/L Potassium 3.2 L (3.5-5.1) mmol/L Chloride 93 L (98-107) mmol/L BUN 20 H (7-17) mg/dL Creatinine 0.49 L (0.52-1.04) mg/dL Glucose 125 H (74-99) mg/dL C-Reactive Protein 15.8 H (<1.0) mg/dL Albumin 3.2 L (3.5-5.0) g/dL Lipase 19 L (23-300) U/L Urine Protein 1+ H (Negative) Urine Ketones 2+ H (Negative) Urine Blood Large H (Negative) Urine RBC 76 H (0-5) /hpf Urine Mucus Occasional H (None) /hpf Thrombosis Risk Factor Assmnt - Choose All That Apply Any of the Below Risk Factors Present?: No Other Risk Factors: Yes Each Risk Factor Represents 3 Points: Age 75 years or older Thrombosis Risk Factor Assessment Total Risk Factor Score: 3 Thrombosis Risk Factor Assessment Level: Moderate Risk Assessment and Plan Assessment: Acute Small bowel obstruction Hypertension History of disturbance Plan: This is a pleasant 86 years old female who presents with small bowel obstruction Continue with bowel rest Pain medications IV fluid Surgical team already evaluated the patient. Labs and medication were reviewed.. Continue same treatment. Continue with symptomatic treatment. Resume home medication. Monitor lytes and vitals. DVT and GI prophylaxis. Further recommendationsas per clinical course of the patient DVT prophylaxis: Subcutaneous heparin GI Prophylaxis: Pepcid PT/OT: Pending Prognosis is guarded Dr. Knight will resume the care of the patient tomorrow
[2021-10-29] MEDS: HYDROXYCHLOROQUINE SULFATE 200 MG TAB PO SCH ×2 (16:37→20:49)
[2021-10-29] MEDS: VALSARTAN 80 MG TAB PO SCH (16:42)
[2021-10-29] MEDS: hydroCHLOROthiazide 12.5 MG CAP PO SCH (16:45)
[2021-10-30] MEDS: HYDROXYCHLOROQUINE SULFATE 200 MG TAB PO SCH ×2 (07:40→20:42)
[2021-10-30] MEDS: FAMOTIDINE 20 MG/2 ML VIAL IV SCH ×2 (07:40→20:41)
[2021-10-30] MEDS: hydroCHLOROthiazide 12.5 MG CAP PO SCH (07:40)
[2021-10-30] MEDS: VALSARTAN 80 MG TAB PO SCH (07:40)
[2021-10-30] MEDS: SODIUM CHLORIDE 0.9% 1,000 ML IV SCH ×2 (07:40→14:56)
[2021-10-30] MEDS: IOPAMIDOL CONTRAST (ORAL USE) VIAL PO PRN ×2 (08:49→09:34)
--- NOTE | 2021-10-30 10:46 | CT ---
EXAMINATION TYPE: CT abdomen pelvis w con DATE OF EXAM: 10/30/2021 COMPARISON: There is evidence of basilar atelectasis and pleural effusions. Cardiomegaly noted. HISTORY: Bowel obstruction Comparison 10/29/2021 CT DLP: 505.8 mGycm CONTRAST: CT scan of the abdomen and pelvis is performed with Oral Contrast and with IV Contrast, patient injec breezy with 100 mL of Isovue 300. FINDINGS: LUNG BASES-: No visible nodule. No infiltrate. LIVER/GB: Calcified gallstone identified. No space occupying hepatic lesion. Biliary tree is of no rmal caliber. PANCREAS: No inflammation. No distinct mass. SPLEEN: No splenic enlargement. No lesion seen. ADRENALS: No nodule. No thickening. KIDNEYS/BLADDER: No hydronephrosis. No nephrolithiasis. No distinct renal mass. Weeks balloon cath eter is noted within the urinary bladder. BOWEL: Dilated small bowel has improved in the interval with maximal dimension currently at 2.9 cm. C ontrast is seen within the right hemicolon. There is wall thickening noted to involve the transverse colon which could reflect nonspecific colitis. Correlate clinically. No evidence for free air or absc ess. GENITAL ORGANS: No gross abnormality. LYMPH NODES: No greater than 1cm abdominal or pelvic lymph nodes are appreciated. AORTA: No significant abnormality. OSSEOUS STRUCTURES: No significant abnormality is seen. OTHER: No significant additional abnormality is seen. IMPRESSION: 1. Dilated small bowel has improved in the interval with maximal dimension currently at 2.9 cm. Contr ast is seen within the right hemicolon. 2. There is wall thickening noted to involve the transverse colon which could reflect nonspecific col itis. Correlate clinically. 3. Basilar pleural effusions and compressive atelectasis. Small amount of ascites seen.
--- NOTE | 2021-10-30 14:13 | P.PN ---
Subjective Progress Note Date: 10/30/21 History of Present Illness This is a pleasant 86 years old female with past medical history of hypertension,Sjogrens syndrome Patient presents because of left lower quadrant abdominal pain about 10/10, currently/10 in severity with no nausea vomiting or diarrhea. No chest pain or dyspnea. No change in urine habits or dysuria. Currently she has a Weeks catheter. She denies smoking, alcohol or illicit tracts She's been afebrile. mild leukocytosis of 19.1, risks of cbc is unremarkable. sodium 128, potassium 3.2. lfts are unremarkable. urine analysis showing 2+ ketones large blood. CT of the abdomen and pelvis without contrast, which involved multiple dilated loops of small bowel with air-fluid levels small bowel feces in the presents of a nondistended colon distal ileum with significant other for partial versus early complete bowel obstruction 10/30: Repeat CAT scan of the abdomen and pelvis with contrast revealed dilated small bowel improved in the interval with maximal dimension at 2.9 cm. Contrast is seen within the right hemicolon. Wall thickening noted to involve the transverse colon which could reflect nonspecific colitis. Basilar pleural effusions and compressive atelectasis. Small amount of ascites. Patient has been afebrile, heart rate 98, blood pressure 126/81, pulse ox 92% on 2 L nasal cannula. Abdominal pain is improved. Patient is requesting a second opinion with Dr. Uriostegui and additional consult will be added today. Discharge plan is to return home possibly by tomorrow. Review of systems CONSTITUTIONAL: No fever, no malaise, no fatigue. HEENT: No recent visual problems or hearing problems. Denied any sore throat. CARDIOVASCULAR: No orthopnea, PND, no palpitations, no syncope. PULMONARY: No shortness of breath, no cough, no hemoptysis. GASTROINTESTINAL: No diarrhea, no nausea, no vomiting, Normoactive bowel sounds. NEUROLOGICAL: No headaches, no weakness, no numbness. HEMATOLOGICAL: Denies any bleeding or petechiae. GENITOURINARY: Denies any burning micturition, frequency, or urgency. MUSCULOSKELETAL/RHEUMATOLOGICAL: Denies any joint pain, swelling, or any muscle pain. ENDOCRINE: Denies any polyuria or polydipsia. 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 Kendall at [facility] in 2019 Past surgical history Hysterectomy Wound debridement right lateral ankle Social history Patient smoked briefly in college. She denies any alcohol use for the past 8 months. Patient lives at home with her . Family history Mother at age 93 from old age with history of hypertension and osteoporosis. Father at age 65 with history of heart condition possibly CHF or CAD. Patient does not have any brothers. Patient has one sister that at age 58 from lupus. Patient has a total of 10 children, 7 sons and 3 daughters. Most of her sons have history of hyperlipidemia and hypertension. Patient's one daughter that has history of neuroendocrine tumor. Physical examination GENERAL: The patient is alert and oriented x3, not in any acute distress. Well developed, well nourished. HEENT: Pupils are round and equally reacting to light. EOMI. No scleral icterus. No conjunctival pallor. Normocephalic, atraumatic. No pharyngeal erythema. No thyromegaly. CARDIOVASCULAR: S1 and S2 present. No murmurs, rubs, or gallops. PULMONARY: Chest is clear to auscultation, no wheezing or crackles. -ABDOMEN: Soft, mild LLQ tenderness, no rebound, nondistended, normoactive bowel sounds. No palpable organomegaly. MUSCULOSKELETAL: No joint swelling or deformity. EXTREMITIES: No cyanosis, clubbing, or pedal edema. NEUROLOGICAL: Gross neurological examination did not reveal any focal deficits. SKIN: No rashes. no petechiae. Assessment and plan 1. Small bowel obstruction, resolving. Patient's diet has been advanced to clear liquids. Patient is requesting a second opinion from a different general surgeon and specifically asking for Dr. Uriostegui. Consult has been added for Dr. Uriostegui. Continue morphine as needed for pain, IV fluids decreased to 50 miles per hour. 2. Hypertension. Continue hydrochlorothiazide 12.5 mg daily, valsartan 80 mg daily. 3. Sjogren syndrome under the care of rheumatology. Continue Plaquenil 200 mg twice daily. 4. Hyponatremia presented with a sodium of 128. Repeat blood work ordered for tomorrow, decrease IV fluids to 50 mL per hour. 5. GI prophylaxis. Protonix. 6. DVT prophylaxis. Lovenox. Discharge plan Almost likely tomorrow Impression and plan of care have been directed as dictated by the signing physician. Brittaney Hemphill nurse practitioner acting as scribe for signing physician. Objective - Vital Signs Vital signs: Vital Signs Temp 97.7 F 10/30/21 08:00 Pulse 98 10/30/21 08:00 Resp 15 10/30/21 07:50 BP 126/81 10/30/21 08:00 Pulse Ox 92 L 10/30/21 08:00 FiO2 Intake & Output 10/29/21 10/30/21 10/30/21 18:59 06:59 18:59 Intake Total 1250 Output Total 2049 Balance 1250 -205 Weight 45.359 kg Intake: Intake, IV Titration 1250 Amount Sodium Chloride 0.9% 1, 1250 000 ml @ 125 mls/hr IV . Q8H [facility] Rx#:[id number] Output: Urine 2049 Other: Voiding Method Indwelling Catheter Indwelling Catheter Indwelling Catheter - Labs CBC & Chem 7: 10/29/21 01:46 10/29/21 01:46
--- NOTE | 2021-10-30 16:45 | P.GSCN ---
History of Present Illness Consult date: 10/30/21 Reason for Consult: Abdominal pain History of present illness: I was consulted to see this patient for abdominal pain. He presented the hospit al with pain that began last . Pain has actually improved somewhat during the hospital stay. When she first came to the hospital pain was a 10 out of 10 and now it is down to a level of 4 she says. Pain is mostly in the lower abdomen. Last bowel movement 3 days ago or so. 1 episode of vomiting. Says that she has had some vague pain for the last 4 months or so. Appetite is diminished. Recently has had some narrower stools. Last colonoscopy 10 years ago was normal. She was told she did not need another colonoscopy. Denies rectal bleeding or melena. No fevers. White blood cell count was elevated at 19 on admission. Repeat labs ordered for tomorrow. No prior abdominal surgeries. Patient has had 2 CAT scans. First CAT scan showed possible small bowel obstruction. Today the oral contrast reaches the cecum. There is some thickening of the transverse colon. She does have some mildly dilated proximal small bowel loops. Patient with significant peripheral vascular disease. There may be some decrease in contrast flow distally through the SMA. Review of Systems The patient denies any acute changes in vision or hearing, no dysphagia or eloisa nophagia, no chest pain or shortness of breath, no dysuria or hematuria, no headache, no runny nose, no rectal bleeding or melena, no unexplained weight loss Past Medical History Past Medical History: Hypertension, Pneumonia Additional Past Medical History / Comment(s): Sjogrens syndrome History of Any Multi-Drug Resistant Organisms: None Reported Past Surgical History: Hysterectomy Past Anesthesia/Blood Transfusion Reactions: No Reported Reaction Past Psychological History: No Psychological Hx Reported Smoking Status: Never smoker Past Alcohol Use History: Occasional Past Drug Use History: None Reported - Past Family History Father Family Medical History: Chest Pain / Angina Mother Additional Family Medical History / Comment(s): lived to be 92yrs old Medications and Allergies Home Medications Medication Instructions Recorded Confirmed Type Hydroxychloroquine Sulfate 400 mg PO DAILY 01/02/15 10/29/21 History [Plaquenil] Valsartan/Hydrochlorothiazide 1 tab PO DAILY 01/02/15 10/29/21 History [Diovan Hct 80-12.5 mg Tablet] Allergies Allergy/AdvReac Type Severity Reaction Status Date / Time amoxicillin Allergy Rash/Hives Verified 10/29/21 07:16 clindamycin Allergy Rash/Hives Verified 10/29/21 07:16 sulfamethoxazole Allergy Rash/Hives Verified 10/29/21 07:16 [From Bactrim] trimethoprim [From Bactrim] Allergy Rash/Hives Verified 10/29/21 07:16 Surgical - Exam Vital Signs Temp Pulse Resp BP Pulse Ox 97.7 F 99 22 130/70 97 10/28/21 23:01 10/28/21 23:01 10/28/21 23:01 10/28/21 23:01 10/28/21 23:01 Physical exam: General: Well-developed, well-nourished HEENT: Normocephalic, sclerae nonicteric Abdomen: Mild lower abdominal tenderness, no rebound or guarding, nondistended Extremities: No edema Neuro: Alert and oriented Results - Labs 10/29/21 01:46 10/29/21 01:46 Assessment and Plan (1) Abdominal pain Narrative/Plan: 86-year-old female with abdominal pain. CAT scan films reviewed. Discussed case with radiology. They are going to review the films in contact me. We'll order EKG to evaluate for arrhythmia. Clearly patient is improved since admission and the patient's pain is lessening gradually. Continue clear liquids. Await repeat labs ordered for tomorrow morning. Current Visit: Yes Status: Acute Code(s): R10.9 - UNSPECIFIED ABDOMINAL PAIN SNOMED Code(s): 51073728
--- NOTE | 2021-10-30 17:29 | P.PN ---
Progress Note - Text Progress Note Date: 10/30/21 The patient feels a better today. I ordered a CAT scan this morning. The oral contrast does reach the right colon. On exam her vital signs are stable. Her abdomen is softer. There is minimal distention and some minimal tenderness. The patient was started on full liquid diet. I do not think she has a significant bowel obstruction.
[2021-10-30 20:30] LABS: Basophils # (A) 0.1 k/uL (0-0.2); Basophils % (A) 0 %; Eosinophils # (A) 0.1 k/uL (0-0.7); Eosinophils % (A) 0 %; HCT 36.6 % (34.0-46.0); HGB 12.4 gm/dL (11.4-16.0); Lymphocytes # (A) 0.7 k/uL (1.0-4.8); Lymphocytes % (A) 4 %; MCH 29.2 pg (25.0-35.0); MCHC 33.9 g/dL (31.0-37.0); Mean Platelet Volume 7.5; Monocytes # (A) 0.8 k/uL (0-1.0); Monocytes % (A) 5 %; Neutrophils # (A) 14.3 k/uL (1.3-7.7); Neutrophils % (A) 89 %; Platelet Count 255 k/uL (150-450); RBC 4.25 m/uL (3.80-5.40); RDW 13.5 % (11.5-15.5); WBC 16.1 k/uL (3.8-10.6)
[2021-10-30] MEDS ORDERED: HEPARIN SODIUM 1,000 UN/ML (10ML VL) IV ONE (20:33)
[2021-10-30] MEDS ORDERED: HEPARIN SODIUM 1,000 UN/ML (10ML VL) IV PRN (20:33)
[2021-10-30 20:45] LABS: INR 1.1 (<1.2); Partial Thromboplastin Time 21.9 sec (22.0-30.0); Prothrombin Time 11.8 sec (9.0-12.0)
[2021-10-30] MEDS: HEPARIN SOD,PORK IN 0.45% NACL 25,000 UNIT in 0.45% NACL 1 250ML.BAG IV SCH (22:51)
[2021-10-31] MEDS: METOPROLOL TARTRATE 12.5 MG TAB PO SCH ×2 (08:03→21:12)
[2021-10-31] MEDS: PANTOPRAZOLE 40 MG TABLET PO SCH (08:03)
[2021-10-31] MEDS: VALSARTAN 80 MG TAB PO SCH (08:03)
[2021-10-31] MEDS: FAMOTIDINE 20 MG/2 ML VIAL IV SCH ×2 (08:03→21:12)
[2021-10-31] MEDS: HYDROXYCHLOROQUINE SULFATE 200 MG TAB PO SCH ×2 (08:03→22:11)
[2021-10-31] MEDS: hydroCHLOROthiazide 12.5 MG CAP PO SCH (08:03)
[2021-10-31] MEDS ORDERED: ENOXAPARIN 40 MG/0.4 ML SYRINGE SQ SCH (09:00)
[2021-10-31 10:30] LABS: HCT 37.9 % (37.2-46.3); MCH 27.2 pg (27.0-32.0); MCHC 31.7 g/dL (32.0-37.0); MCV 85.9 fL (80.0-97.0); Mean Platelet Volume 10.9 fL (9.5-12.2); NRBC Per 100 WBC 0 /100 WBCS (0.0-0.0); Platelet Count 238 X 10*3/uL (140-440); RBC 4.41 X 10*6/uL (4.10-5.20); WBC 15.13 X 10*3/uL (4.50-10.00)
[2021-10-31 10:53] LABS: African American GFR (CKD) 111.2 (60.0-200.0); Albumin 2.6 g/dL (3.8-4.9); Albumin/Globulin Ratio 0.93 (1.60-3.17); Anion Gap 17.1 mmol/L (10.00-18.00); BUN/Creat Ratio 21.89 Ratio (12.00-20.00); Blood Urea Nitrogen 8.3 mg/dL (9.0-27.0); Calcium 7.8 mg/dL (8.7-10.3); Carbon Dioxide 19.2 mmol/L (20.0-27.5); Globulin 2.8 g/dL (1.6-3.3); INR 1.16 (0.90-1.11); Prothrombin Time 12.7 sec (9.9-11.9); Total Bilirubin 0.5 mg/dL (0.30-1.20); Total Protein 5.4 g/dL (6.2-8.2)
[2021-10-31 11:15] LABS: Basophils # (A) 0.08 X 10*3/uL (0.00-0.10); Basophils % (A) 0.5 %; Eosinophils # (A) 0.01 X 10*3/uL (0.04-0.35); Eosinophils % (A) 0.1 %; Immature Grans, Automated 0.9 %; Lymphocytes # (A) 0.75 X 10*3/uL (0.90-5.00); Monocytes # (A) 1.42 X 10*3/uL (0.20-1.00); Monocytes % (A) 9.4 %; Neutrophils # (A) 12.73 X 10*3/uL (1.80-7.70); Neutrophils % (A) 84.1 %; Non-African American GFR(CKD) 95.9 (60.0-200.0); Potassium 2.7 mmol/L (3.5-5.5); Toxic Vacuolation 2+
[2021-10-31] MEDS: POTASSIUM CHLORIDE ER 20 MEQ TAB.ER PO SCH ×3 (11:34→16:00)
[2021-10-31] MEDS: ACETAMINOPHEN TAB 500 MG TAB PO SCH ×3 (11:34→21:12)
--- NOTE | 2021-10-31 12:20 | P.PN ---
Subjective Progress Note Date: 10/31/21 Principal diagnosis: abdominal pain Patient sitting up in the chair. She has multiple family members in the room 3 of which are her children. is not present today. Patient says her pain is again somewhat better than yesterday. Earlier today she rated her pain at a 7 out of 10 but says it is better than that now. She is mildly tachycardic overnight. White blood cell count improved however immature granulocytes increased. Potassium 2.7. Patient's lactic acid is normal today. Location of the pain again is mostly lower abdomen. Objective - Vital Signs Vital signs: Vital Signs Temp 98.3 F 10/31/21 08:00 Pulse 122 H 10/31/21 08:00 Resp 18 10/31/21 08:00 BP 151/77 10/31/21 08:00 Pulse Ox 91 L 10/31/21 08:00 FiO2 Intake & Output 10/30/21 10/31/21 10/31/21 18:59 06:59 18:59 Output Total 900 900 Balance -900 -900 Weight 45.86 kg Output: Urine 900 900 Other: Voiding Method Indwelling Catheter Indwelling Catheter Indwelling Catheter - Exam Abdomen: Soft, mild distention, mild diffuse tenderness with some moderate tenderness in bilateral lower quadrants, no rebound or guarding - Labs CBC & Chem 7: 10/31/21 05:32 10/31/21 05:32 Labs: Abnormal Lab Results - Last 24 Hours (Table) 10/30/21 10/30/21 10/31/21 Range/Units 20:11 20:20 05:32 WBC 16.1 H 15.13 H (3.8-10.6) k/uL MCHC 31.7 L (32.0-37.0) g/dL Immature Gran # 0.14 H (0.00-0.04) X 10*3/uL Neutrophils # 14.3 H 12.73 H (1.3-7.7) k/uL Lymphocytes # 0.7 L 0.75 L (1.0-4.8) k/uL Monocytes # 1.42 H (0.20-1.00) X 10*3/uL Eosinophils # 0.01 L (0.04-0.35) X 10*3/uL PT (9.9-11.9) sec INR (0.90-1.11) APTT 21.9 L (22.0-30.0) sec Potassium (3.5-5.5) mmol/L Carbon Dioxide (20.0-27.5) mmol/L BUN (9.0-27.0) mg/dL Creatinine (0.6-1.5) mg/dL BUN/Creatinine Ratio (12.00-20.00) Ratio Glucose (70-110) mg/dL Calcium (8.7-10.3) mg/dL Total Protein (6.2-8.2) g/dL Albumin (3.8-4.9) g/dL Albumin/Globulin Ratio (1.60-3.17) g/dL 10/31/21 10/31/21 Range/Units 05:32 05:32 WBC (3.8-10.6) k/uL MCHC (32.0-37.0) g/dL Immature Gran # (0.00-0.04) X 10*3/uL Neutrophils # (1.3-7.7) k/uL Lymphocytes # (1.0-4.8) k/uL Monocytes # (0.20-1.00) X 10*3/uL Eosinophils # (0.04-0.35) X 10*3/uL PT 12.7 H (9.9-11.9) sec INR 1.16 H (0.90-1.11) APTT (22.0-30.0) sec Potassium 2.7 L* (3.5-5.5) mmol/L Carbon Dioxide 19.2 L (20.0-27.5) mmol/L BUN 8.3 L (9.0-27.0) mg/dL Creatinine 0.4 L (0.6-1.5) mg/dL BUN/Creatinine Ratio 21.89 H (12.00-20.00) Ratio Glucose 63 L (70-110) mg/dL Calcium 7.8 L (8.7-10.3) mg/dL Total Protein 5.4 L (6.2-8.2) g/dL Albumin 2.6 L (3.8-4.9) g/dL Albumin/Globulin Ratio 0.93 L (1.60-3.17) g/dL Assessment and Plan (1) Abdominal pain Narrative/Plan: 86-year-old female with a 5-6 day history of abdominal pain. Films were reviewed after seeing the patient yesterday afternoon. I was concerned on the coronal views that the contrast through the superior mesenteric artery seemed to be diminished distally. This was reviewed with the radiologist. An addendum to the dictation was later added. Ischemia to the SMA distribution would explain the suspected colonic wall thickening. The history however is somewhat unusual in the patient's symptoms have improved with conservative measures thus far. I spoke with vascular surgery yesterday evening. Heparin drip was started. They will be evaluating the patient today. Discussed with patient and family that determining the extent of suspected ischemia may require surgical exploration. Patient again states that she is not interested in any surgery at this time. The alternative option would be continued observation, conservative measures, and supportive care. Continue heparin drip and IV hydration. Continue clear liquids for now. Will add empiric antibiotic coverage. Discussed with patient and her family that they should be discussing extent of care options further amongst themselves in the event that the patient's condition deteriorates. We will follow closely with you. I will contact Dr. Knight by phone to update him. Current Visit: Yes Status: Acute Code(s): R10.9 - UNSPECIFIED ABDOMINAL PAIN SNOMED Code(s): 89209605
--- NOTE | 2021-10-31 12:48 | P.PN ---
Subjective Progress Note Date: 10/31/21 History of Present Illness This is a pleasant 86 years old female with past medical history of hypertension,Sjogrens syndrome Patient presents because of left lower quadrant abdominal pain about 10/10, currently/10 in severity with no nausea vomiting or diarrhea. No chest pain or dyspnea. No change in urine habits or dysuria. Currently she has a Weeks catheter. She denies smoking, alcohol or illicit tracts She's been afebrile. mild leukocytosis of 19.1, risks of cbc is unremarkable. sodium 128, potassium 3.2. lfts are unremarkable. urine analysis showing 2+ ketones large blood. CT of the abdomen and pelvis without contrast, which involved multiple dilated loops of small bowel with air-fluid levels small bowel feces in the presents of a nondistended colon distal ileum with significant other for partial versus early complete bowel obstruction 10/30: Repeat CAT scan of the abdomen and pelvis with contrast revealed dilated small bowel improved in the interval with maximal dimension at 2.9 cm. Contrast is seen within the right hemicolon. Wall thickening noted to involve the transverse colon which could reflect nonspecific colitis. Basilar pleural effusions and compressive atelectasis. Small amount of ascites. Patient has been afebrile, heart rate 98, blood pressure 126/81, pulse ox 92% on 2 L nasal cannula. Abdominal pain is improved. Patient is requesting a second opinion with Dr. Uriostegui and additional consult will be added today. Discharge plan is to return home possibly by tomorrow. 10/31: Patient was seen by Dr. Uriostegui a second opinion yesterday and started the patient on heparin drip for possible ischemic bowel and consult was added for vascular surgery. Dr. Uriostegui discussed condition, plan in detail with the patient and multiple family members at the bedside. Plan is for conservative management. Patient is currently on a clear liquid diet and tolerated. She is still having some lower quadrant abdominal pain and tenderness. Patient has been afebrile, heart rate in the 122, blood pressure 151/77, pulse ox 91% on 2 L nasal cannula. Repeat blood work reveals WBC 15.1, hemoglobin 12, platelet count 238. INR 1.1. Potassium 2.7 and will be replaced. BUN 8.3 creatinine 0.4. Due to sinus tachycardia this morning, patient was placed on athletic monitor and started on Lopressor 12.5 mg twice daily for now. Review of systems CONSTITUTIONAL: No fever, no malaise, no fatigue. HEENT: No recent visual problems or hearing problems. Denied any sore throat. CARDIOVASCULAR: No orthopnea, PND, no palpitations, no syncope. PULMONARY: No shortness of breath, no cough, no hemoptysis. GASTROINTESTINAL: Reports lower abdominal discomfort. No diarrhea, no nausea, no vomiting, Normoactive bowel sounds. NEUROLOGICAL: No headaches, no weakness, no numbness. HEMATOLOGICAL: Denies any bleeding or petechiae. GENITOURINARY: Denies any burning micturition, frequency, or urgency. Weeks catheter for urinary retention. MUSCULOSKELETAL/RHEUMATOLOGICAL: Denies any joint pain, swelling, or any muscle pain. ENDOCRINE: Denies any polyuria or polydipsia. Physical examination GENERAL: The patient is alert and oriented x3, not in any acute distress. Well developed, well nourished. Multiple family members at the bedside. HEENT: Pupils are round and equally reacting to light. EOMI. No scleral icterus. No conjunctival pallor. Normocephalic, atraumatic. No pharyngeal erythema. No thyromegaly. CARDIOVASCULAR: S1 and S2 present. No murmurs, rubs, or gallops. PULMONARY: Chest is clear to auscultation, no wheezing or crackles. -ABDOMEN: Soft, mild right lower quadrant and LLQ tenderness, no rebound, nondistended, normoactive bowel sounds. No palpable organomegaly. Weeks catheter. MUSCULOSKELETAL: No joint swelling or deformity. EXTREMITIES: No cyanosis, clubbing, or pedal edema. NEUROLOGICAL: Gross neurological examination did not reveal any focal deficits. SKIN: No rashes. no petechiae. Assessment and plan 1. Abdominal pain secondary to Small bowel obstruction, resolving and concern for ischemic bowel. Patient is been started on heparin drip, vascular surgery consult. Patient is currently on clear liquid diet. Consult with Dr. Uriostegui appreciated. Continue morphine as needed for pain, IV fluids decreased to 50 miles per hour. 2. Hypertension. Continue hydrochlorothiazide 12.5 mg daily, valsartan 80 mg daily. 3. Sjogren syndrome under the care of rheumatology. Continue Plaquenil 200 mg twice daily. 4. Hyponatremia presented with a sodium of 128, resolved. 5. Sinus Tachycardia. Patient started on athletic monitor and Lopressor 12.5 mg twice daily. 6. Hypokalemia. Replacement and recheck tomorrow. 7. GI prophylaxis. Protonix. 8. DVT prophylaxis. Heparin drip. Discharge plan Most likely return home. PT and OT consults Impression and plan of care have been directed as dictated by the signing physician. Brittaney Hemphill nurse practitioner acting as scribe for signing physician. Objective - Vital Signs Vital signs: Vital Signs Temp 98.3 F 10/31/21 08:00 Pulse 122 H 10/31/21 08:00 Resp 18 10/31/21 08:00 BP 151/77 10/31/21 08:00 Pulse Ox 91 L 10/31/21 08:00 FiO2 Intake & Output 10/30/21 10/31/21 10/31/21 18:59 06:59 18:59 Output Total 900 900 Balance -900 -900 Weight 45.86 kg Output: Urine 900 900 Other: Voiding Method Indwelling Catheter Indwelling Catheter Indwelling Catheter - Labs CBC & Chem 7: 10/31/21 05:32 10/31/21 05:32 Labs: Abnormal Lab Results - Last 24 Hours (Table) 10/30/21 10/30/21 10/31/21 Range/Units 20:11 20:20 05:32 WBC 16.1 H 15.13 H (3.8-10.6) k/uL MCHC 31.7 L (32.0-37.0) g/dL Immature Gran # 0.14 H (0.00-0.04) X 10*3/uL Neutrophils # 14.3 H 12.73 H (1.3-7.7) k/uL Lymphocytes # 0.7 L 0.75 L (1.0-4.8) k/uL Monocytes # 1.42 H (0.20-1.00) X 10*3/uL Eosinophils # 0.01 L (0.04-0.35) X 10*3/uL PT (9.9-11.9) sec INR (0.90-1.11) APTT 21.9 L (22.0-30.0) sec Potassium (3.5-5.5) mmol/L Carbon Dioxide (20.0-27.5) mmol/L BUN (9.0-27.0) mg/dL Creatinine (0.6-1.5) mg/dL BUN/Creatinine Ratio (12.00-20.00) Ratio Glucose (70-110) mg/dL Calcium (8.7-10.3) mg/dL Total Protein (6.2-8.2) g/dL Albumin (3.8-4.9) g/dL Albumin/Globulin Ratio (1.60-3.17) g/dL 10/31/21 10/31/21 Range/Units 05:32 05:32 WBC (3.8-10.6) k/uL MCHC (32.0-37.0) g/dL Immature Gran # (0.00-0.04) X 10*3/uL Neutrophils # (1.3-7.7) k/uL Lymphocytes # (1.0-4.8) k/uL Monocytes # (0.20-1.00) X 10*3/uL Eosinophils # (0.04-0.35) X 10*3/uL PT 12.7 H (9.9-11.9) sec INR 1.16 H (0.90-1.11) APTT (22.0-30.0) sec Potassium 2.7 L* (3.5-5.5) mmol/L Carbon Dioxide 19.2 L (20.0-27.5) mmol/L BUN 8.3 L (9.0-27.0) mg/dL Creatinine 0.4 L (0.6-1.5) mg/dL BUN/Creatinine Ratio 21.89 H (12.00-20.00) Ratio Glucose 63 L (70-110) mg/dL Calcium 7.8 L (8.7-10.3) mg/dL Total Protein 5.4 L (6.2-8.2) g/dL Albumin 2.6 L (3.8-4.9) g/dL Albumin/Globulin Ratio 0.93 L (1.60-3.17) g/dL
[2021-10-31] MEDS ORDERED: LEVOFLOXACIN 500MG-D5W PMX 500 MG in DEXTROSE/WATER 1 100ML.BAG IVPB SCH (13:00)
[2021-10-31] MEDS: SODIUM CHLORIDE 0.9% 1,000 ML IV SCH ×2 (13:49→16:55)
[2021-10-31 13:52] LABS: Glucose,Whole Blood 175 mg/dL (70-110)
[2021-10-31] MEDS ORDERED: SODIUM CHLORIDE 0.9% 500 ML 500 ML IV ONE (14:04)
[2021-10-31 14:54] LABS: HCT 39.7 % (34.0-46.0); HGB 12.8 gm/dL (11.4-16.0); MCH 28.3 pg (25.0-35.0); MCHC 32.3 g/dL (31.0-37.0); MCV 87.7 fL (80.0-100.0); Mean Platelet Volume 7.4; Platelet Count 246 k/uL (150-450); RBC 4.53 m/uL (3.80-5.40); RDW 13.6 % (11.5-15.5); WBC 15.9 k/uL (3.8-10.6)
[2021-10-31 15:25] LABS: ALT 13 U/L (4-34); AST 27 U/L (14-36); African American GFR (CKD) >90 (>60 ml/min/1.73 sqM); Albumin 2.8 g/dL (3.5-5.0); Albumin/Globulin Ratio 0.8; Alkaline Phosphatase 108 U/L (38-126); Anion Gap 12 mmol/L; Blood Urea Nitrogen 11 mg/dL (7-17); Carbon Dioxide 20 mmol/L (22-30); Chloride 99 mmol/L (98-107); Globulin 3.3 g/dL; Glucose 172 mg/dL (74-99); Non-African American GFR(CKD) 88 (>60 ml/min/1.73 sqM); Sodium 131 mmol/L (137-145); Total Bilirubin 0.8 mg/dL (0.2-1.3); Total Protein 6.1 g/dL (6.3-8.2)
--- NOTE | 2021-10-31 15:32 | P.GSCN ---
History of Present Illness Consult date: 10/31/21 History of present illness: Patient is an 86-year-old female we are asked to see in consultation regarding abdominal pain and superior mesenteric artery thrombus/occlusion. Overall her story is that she had abdominal pain that initiated many days previously. It fluctuates since she's been here in the hospital would overall is improving. Her last bowel movement was last week. She denies any fevers or chills. She denies any pain previous to this. She denies any abnormal heart rates. She was initially evaluated for possible computed tomography scan showing small bowel obstruction. There is some mild thickening of the transverse colon but at the time no evidence of pneumatosis or free fluid. Reportedly the patient does not want any sort of aggressive surgeries. This was confirmed. Past Medical History Past Medical History: Hypertension, Pneumonia Additional Past Medical History / Comment(s): Sjogrens syndrome History of Any Multi-Drug Resistant Organisms: None Reported Past Surgical History: Hysterectomy Past Anesthesia/Blood Transfusion Reactions: No Reported Reaction Past Psychological History: No Psychological Hx Reported Smoking Status: Never smoker Past Alcohol Use History: Occasional Past Drug Use History: None Reported - Past Family History Father Family Medical History: Chest Pain / Angina Mother Additional Family Medical History / Comment(s): lived to be 92yrs old Medications and Allergies Home Medications Medication Instructions Recorded Confirmed Type Hydroxychloroquine Sulfate 400 mg PO DAILY 01/02/15 10/29/21 History [Plaquenil] Valsartan/Hydrochlorothiazide 1 tab PO DAILY 01/02/15 10/29/21 History [Diovan Hct 80-12.5 mg Tablet] Allergies Allergy/AdvReac Type Severity Reaction Status Date / Time amoxicillin Allergy Rash/Hives Verified 10/29/21 07:16 clindamycin Allergy Rash/Hives Verified 10/29/21 07:16 sulfamethoxazole Allergy Rash/Hives Verified 10/29/21 07:16 [From Bactrim] trimethoprim [From Bactrim] Allergy Rash/Hives Verified 10/29/21 07:16 Surgical - Exam Vital Signs Temp Pulse Resp BP Pulse Ox 97.7 F 99 22 130/70 97 10/28/21 23:01 10/28/21 23:01 10/28/21 23:01 10/28/21 23:01 10/28/21 23:01 Gen i a pleasant cooperative elderly female in no acute distress, however mild abdominal pain. Sitting in a chair and conversing. HEENT is normal cephalic, atraumatic, excellent motion intact. Heart is tachycardic but otherwise regular. Lungs are clear but diminished. Abdomen is soft, lower extremity tenderness to palpation. No rebound. No true guarding. Mildly distended. E xtremity show no clubbing, cyanosis or edema. Nonpalpable pedal pulses. Results Imaging and labs are reviewed - Labs 10/31/21 14:39 10/31/21 14:39 Abnormal Lab Results - Last 24 Hours (Table) 10/30/21 10/30/21 10/31/21 Range/Units 20:11 20:20 05:32 WBC 16.1 H 15.13 H (3.8-10.6) k/uL MCHC 31.7 L (32.0-37.0) g/dL Immature Gran # 0.14 H (0.00-0.04) X 10*3/uL Neutrophils # 14.3 H 12.73 H (1.3-7.7) k/uL Lymphocytes # 0.7 L 0.75 L (1.0-4.8) k/uL Monocytes # 1.42 H (0.20-1.00) X 10*3/uL Eosinophils # 0.01 L (0.04-0.35) X 10*3/uL PT (9.9-11.9) sec INR (0.90-1.11) APTT 21.9 L (22.0-30.0) sec Sodium (137-145) mmol/L Potassium (3.5-5.5) mmol/L Carbon Dioxide (20.0-27.5) mmol/L BUN (9.0-27.0) mg/dL Creatinine (0.6-1.5) mg/dL BUN/Creatinine Ratio (12.00-20.00) Ratio Glucose (70-110) mg/dL POC Glucose (mg/dL) (70-110) mg/dL Calcium (8.7-10.3) mg/dL Total Protein (6.2-8.2) g/dL Albumin (3.8-4.9) g/dL Albumin/Globulin Ratio (1.60-3.17) g/dL 10/31/21 10/31/2110/31/22 Range/Units 05:32 05:32 13:51 WBC (3.8-10.6) k/uL MCHC (32.0-37.0) g/dL Immature Gran # (0.00-0.04) X 10*3/uL Neutrophils # (1.3-7.7) k/uL Lymphocytes # (1.0-4.8) k/uL Monocytes # (0.20-1.00) X 10*3/uL Eosinophils # (0.04-0.35) X 10*3/uL PT 12.7 H (9.9-11.9) sec INR 1.16 H (0.90-1.11) APTT (22.0-30.0) sec Sodium (137-145) mmol/L Potassium 2.7 L* (3.5-5.5) mmol/L Carbon Dioxide 19.2 L (20.0-27.5) mmol/L BUN 8.3 L (9.0-27.0) mg/dL Creatinine 0.4 L (0.6-1.5) mg/dL BUN/Creatinine Ratio 21.89 H (12.00-20.00) Ratio Glucose 63 L (70-110) mg/dL POC Glucose (mg/dL) 175 H (70-110) mg/dL Calcium 7.8 L (8.7-10.3) mg/dL Total Protein 5.4 L (6.2-8.2) g/dL Albumin 2.6 L (3.8-4.9) g/dL Albumin/Globulin Ratio 0.93 L (1.60-3.17) g/dL 10/31/21 10/31/21 Range/Units 14:39 14:39 WBC 15.9 H (3.8-10.6) k/uL MCHC (32.0-37.0) g/dL Immature Gran # (0.00-0.04) X 10*3/uL Neutrophils # (1.3-7.7) k/uL Lymphocytes # (1.0-4.8) k/uL Monocytes # (0.20-1.00) X 10*3/uL Eosinophils # (0.04-0.35) X 10*3/uL PT (9.9-11.9) sec INR (0.90-1.11) APTT (22.0-30.0) sec Sodium 131 L (137-145) mmol/L Potassium 3.0 L (3.5-5.5) mmol/L Carbon Dioxide 20 L (20.0-27.5) mmol/L BUN (9.0-27.0) mg/dL Creatinine 0.51 L (0.6-1.5) mg/dL BUN/Creatinine Ratio (12.00-20.00) Ratio Glucose 172 H (70-110) mg/dL POC Glucose (mg/dL) (70-110) mg/dL Calcium 8.0 L (8.7-10.3) mg/dL Total Protein 6.1 L (6.2-8.2) g/dL Albumin 2.8 L (3.8-4.9) g/dL Albumin/Globulin Ratio (1.60-3.17) g/dL Diabetes panel 10/31/21 10/31/21 Range/Units 05:32 14:39 Sodium 135 131 L (135-145) mmol/L Potassium 2.7 L* 3.0 L (3.5-5.5) mmol/L Chloride 98 99 (96-109) mmol/L Carbon Dioxide 19.2 L 20 L (20.0-27.5) mmol/L BUN 8.3 L 11 (9.0-27.0) mg/dL Creatinine 0.4 L 0.51 L (0.6-1.5) mg/dL Glucose 63 L 172 H (70-110) mg/dL Calcium 7.8 L 8.0 L (8.7-10.3) mg/dL AST 19 27 (13-35) U/L ALT 10 13 (8-44) U/L Alkaline Phosphatase 73 108 (41-126) U/L Total Protein 5.4 L 6.1 L (6.2-8.2) g/dL Albumin 2.6 L 2.8 L (3.8-4.9) g/dL Calcium panel 10/31/21 10/31/21 Range/Units 05:32 14:39 Calcium 7.8 L 8.0 L (8.7-10.3) mg/dL Albumin 2.6 L 2.8 L (3.8-4.9) g/dL Pituitary panel 10/31/21 10/31/21 Range/Units 05:32 14:39 Sodium 135 131 L (135-145) mmol/L Potassium 2.7 L* 3.0 L (3.5-5.5) mmol/L Chloride 98 99 (96-109) mmol/L Carbon Dioxide 19.2 L 20 L (20.0-27.5) mmol/L BUN 8.3 L 11 (9.0-27.0) mg/dL Creatinine 0.4 L 0.51 L (0.6-1.5) mg/dL Glucose 63 L 172 H (70-110) mg/dL Calcium 7.8 L 8.0 L (8.7-10.3) mg/dL Adrenal panel 10/31/21 10/31/21 Range/Units 05:32 14:39 Sodium 135 131 L (135-145) mmol/L Potassium 2.7 L* 3.0 L (3.5-5.5) mmol/L Chloride 98 99 (96-109) mmol/L Carbon Dioxide 19.2 L 20 L (20.0-27.5) mmol/L BUN 8.3 L 11 (9.0-27.0) mg/dL Creatinine 0.4 L 0.51 L (0.6-1.5) mg/dL Glucose 63 L 172 H (70-110) mg/dL Calcium 7.8 L 8.0 L (8.7-10.3) mg/dL Total Bilirubin 0.50 0.8 (0.30-1.20) mg/dL AST 19 27 (13-35) U/L ALT 10 13 (8-44) U/L Alkaline Phosphatase 73 108 (41-126) U/L Total Protein 5.4 L 6.1 L (6.2-8.2) g/dL Albumin 2.6 L 2.8 L (3.8-4.9) g/dL Assessment and Plan Assessment: Distal superior mesenteric artery occlusion Abdominal pain - improving Plan: Overall the patient's having improvements without significant worsening of labs. The location of the occlusion is not at the takeoff therefore no stenting procedure would be available. May be able to go forward with an angiogram possible suction thrombectomy of this location if the patient would like to undergo intervention. No current evidence of pneumatosis on imaging and labs are improving. This is discussed with her primary as well as surgical teams. If the patient changes her mind about wanting to go forward with interventions and does require laparotomy, would be available for possible embolectomy as well. Currently on a heparin drip without significant change.
[2021-10-31] MEDS: metroNIDAZOLE-NS PMX 500 MG in SALINE 1 100ML.BAG IVPB SCH (17:41)
[2021-10-31 20:23] LABS: Glucose,Whole Blood 139 mg/dL (70-110)
[2021-10-31] MEDS: HEPARIN SOD,PORK IN 0.45% NACL 25,000 UNIT in 0.45% NACL 1 250ML.BAG IV SCH (21:13)
--- NOTE | 2021-10-31 23:06 | XR ---
EXAMINATION TYPE: XR chest 1V portable DATE OF EXAM: 10/31/2021 COMPARISON: 08/10/2021 HISTORY: Short of breath TECHNIQUE: Single view FINDINGS: There is some atelectasis and infiltrate left lung base. No heart failure. There is mild bl unting of the costophrenic angles. There are chest leads. IMPRESSION: No heart failure. Pleural reaction and atelectasis at the lung bases which is increased c ompared to old exam.
[2021-11-01] MEDS: SODIUM CHLORIDE 0.9% 1,000 ML IV SCH ×3 (00:30→10:42)
[2021-11-01 01:47] LABS: Glucose,Whole Blood 112 mg/dL (70-110)
[2021-11-01] MEDS ORDERED: DEXTROSE 5% IN WATER 100 ML with AMIODARONE 300 MG IV ONE (02:00)
[2021-11-01 02:02] LABS: ABG Base Excess -14.6 mmol/L; ABG HCO3 14 mmol/L (21-25); ABG Oxygen Saturation 85.2 % (94-97); ABG PCO2 39 mmHg (35-45); ABG PO2 61 mmHg (83-108); ABG TCO2 15 mmol/L (19-24); Allen Test Performed? Yes
[2021-11-01 02:11] LABS: ABG PH 7.17 (7.35-7.45)
[2021-11-01 02:20] LABS: HCT 45.3 % (34.0-46.0); HGB 14.3 gm/dL (11.4-16.0); Hypochromasia Slight; MCH 28.4 pg (25.0-35.0); MCHC 31.6 g/dL (31.0-37.0); MCV 89.8 fL (80.0-100.0); Mean Platelet Volume 7.9; Platelet Count 231 k/uL (150-450); RBC 5.04 m/uL (3.80-5.40); RDW 13.7 % (11.5-15.5); WBC 17.9 k/uL (3.8-10.6)
[2021-11-01] MEDS: metroNIDAZOLE-NS PMX 500 MG in SALINE 1 100ML.BAG IVPB SCH ×2 (02:50→10:04)
[2021-11-01] MEDS: ACETAMINOPHEN TAB 500 MG TAB PO SCH (02:59)
[2021-11-01] MEDS ORDERED: AMIODARONE 360 MG in DEXTROSE 5% IN WATER 200 ML IV ONE ×2 (03:00)
[2021-11-01 03:30] LABS: Albumin 2.4 g/dL (3.5-5.0); Calcium 7.6 mg/dL (8.4-10.2); Potassium 3.4 mmol/L (3.5-5.1); Total Protein 5.6 g/dL (6.3-8.2)
[2021-11-01] MEDS ORDERED: SODIUM BICARB 8.4% 50 ML SYR (1 MEQ/ML) IV STA ×4 (03:30→09:56)
[2021-11-01] MEDS ORDERED: DEXTROSE 5% IN WATER 1,000 ML with SODIUM BICARB (1 MEQ/ML) 150 ML IV SCH (04:00)
[2021-11-01] MEDS ORDERED: SODIUM CHLORIDE 0.9% 1,000 ML IV ONE (07:29)
[2021-11-01] MEDS: PANTOPRAZOLE 40 MG TABLET PO SCH (08:03)
--- NOTE | 2021-11-01 08:16 | CT ---
EXAMINATION TYPE: CT abdomen pelvis wo con DATE OF EXAM: 11/01/2021 COMPARISON: 10/30/2021 INDICATION: Distended abdomen. Diaphoretic and pale DLP: 417.7 mGycm, Automated exposure control for dose reduction was used. CONTRAST: 0 mL of Isovue 300. Study performed without Oral Contrast TECHNIQUE: Axial images were obtained from above the diaphragm to the pubic rami in the axial plane a t 5 mm thick sections. Reconstructed images are reviewed on the computer in the coronal plane. FINDINGS: Limited CT sections are obtained the lung bases. Small pleural effusions are present bilaterally. So me mild compressive atelectasis adjacent. CT ABDOMEN: There are multiple dilated small bowel loops with air fluid levels. Pneumatosis intestina lis is present. Liver: There punctate air collections within the left and right lobe of the liver. This may be biliar y but was not present previously. This is not as peripherally as expected for venous gas which should be considered within the differential. Spleen: Normal Pancreas: Normal as visualized Adrenal glands: The adrenal glands are normal. Gallbladder: Cholelithiasis Kidneys: No masses are evident. No hydronephrosis is present. No cysts are present. Some residual contrast is within the kidneys. Aorta: Vascular calcification is within the aorta. Inferior vena cava: Normal. CT PELVIS: There is some contrast within the ascending colon region. Some distal colon wall thickening is not ex cluded (may be due to incomplete distention Appendix: Not visualized Urinary bladder: Decompressed with Weeks catheter. Small amount of excreted contrast within the urina ry bladder. Genitourinary structures: Uterus and ovaries are not identified. Osseous structures: No suspicious lytic or sclerotic lesions IMPRESSIONS: 1. Pneumatosis intestinalis. Correlate for pulmonary process. 2. Tiny amount of air within the liver. Consider early venous air from bowel necrosis. This potential ly could be related to biliary air. 3. Report was called to the ICU nurse Jeana by Dr. Rosario by telephone at time of interpretation [id number] [id number] hours 11/01/2021 A Red level critical message alert has been initiated for Myron Delarosa via the [employer] System on 11/01/2021 8:12 AM. This message alert has been sent to Myron Delarosa via the [employer] provided by the clinician for the receipt of Radiology Critical Findings. Message ID [id number].
[2021-11-01] MEDS ORDERED: AMIODARONE 450 MG in DEXTROSE 5% IN WATER 250 ML IV SCH ×2 (09:00)
[2021-11-01] MEDS ORDERED: PANTOPRAZOLE 40 MG/10 ML VIAL IVP SCH (09:00)
--- NOTE | 2021-11-01 09:11 | XR ---
EXAMINATION TYPE: XR chest 1V portable DATE OF EXAM: 11/01/2021 COMPARISON: Chest x-ray 10/31/2021, CT 11/01/2021 HISTORY: Shortness of breath TECHNIQUE: Single frontal view of the chest is obtained. FINDINGS: Heart is enlarged. Aorta is dense and possibly ectatic. There is a spinal curvature. Apica l pleural thickening is again noted. No evident pneumothorax. Blunting the right costophrenic angle i s present. Patchy basilar density is noted especially in the retrocardiac region. There are overlying leads. Interstitium is mildly increased. Overlying artifacts noted. IMPRESSION: Correlate for left lower lobe atelectasis versus pneumonia and associated effusions.
[2021-11-01] MEDS ORDERED: NOREPINEPHRINE 32 MG in SODIUM CHLORIDE 0.9% 218 ML IV SCH (09:15)
[2021-11-01 09:24] LABS: Glucose,Whole Blood 161 mg/dL (70-110)
[2021-11-01 09:51] LABS: ABG Base Excess -8.5 mmol/L; ABG HCO3 19 mmol/L (21-25); ABG Oxygen Saturation 94.5 % (94-97); ABG PCO2 44 mmHg (35-45); ABG PH 7.24 (7.35-7.45); ABG PO2 79 mmHg (83-108); ABG TCO2 20 mmol/L (19-24); Allen Test Performed? Yes
[2021-11-01] MEDS: POTASSIUM CHLORIDE 10 MEQ in WATER FOR INJECTION 1 100ML.BAG IVPB SCH ×4 (10:05→11:27)
[2021-11-01] MEDS: METOPROLOL TARTRATE 12.5 MG TAB PO SCH (10:06)
--- NOTE | 2021-11-01 10:06 | XR ---
EXAMINATION TYPE: XR chest 1V portable DATE OF EXAM: 11/01/2021 COMPARISON: 11/01/2021 HISTORY: SOB, Follow Up FINDINGS: NG tube is noted with its distal tip at the GE junction and should be advanced. Perihilar and basilar infiltrates left greater than right. Cardiomegaly with pulmonary venous congestion. Suspect small pleural effusions. IMPRESSION: 1. NG tube should be advanced.
[2021-11-01 10:39] VITALS: BP 66/54; TEMP 96.5
[2021-11-01] MEDS ORDERED: PHENYLEPHRINE-0.9% NACL SYG 1,000 MCG/10 ML SYRINGE ONE (11:18)
[2021-11-01] MEDS ORDERED: ETOMIDATE 2 MG/ML 10 ML VIAL ONE (11:18)
[2021-11-01] MEDS ORDERED: ePHEDrine 50 MG/ML 1 ML VIAL ONE (11:18)
[2021-11-01] MEDS ORDERED: SUCCINYLCHOLINE CHLORIDE 100 MG/5 ML SYR IV ONE (11:18)
[2021-11-01] MEDS ORDERED: ROCURONIUM 10 MG/ML (5 ML VIAL) IV ONE (11:18)
[2021-11-01] MEDS ORDERED: fentaNYL (PF) 50 MCG/ML 2 ML AMP ONE (11:18)
[2021-11-01] MEDS ORDERED: LIDOCAINE 2% INJ 20 MG/ML (2 ML VIAL) ONE (11:18)
[2021-11-01] MEDS ORDERED: ceFAZolin 1,000 MG VIAL ONE (11:18)
[2021-11-01] MEDS ORDERED: SODIUM CHLORIDE 0.9% 100 ML BAG ONE (11:18)
[2021-11-01] MEDS ORDERED: LACTATED RINGERS 1,000 ML IV ONE ×2 (11:28→12:40)
--- NOTE | 2021-11-01 11:36 | P.PN ---
Progress Note - Text Progress Note Date: 11/01/21 Patient was transferred to [facility] care yesterday afternoon because of tachycardia. There was an EKG that confirmed atrial fibrillation at one point. She remained on a heparin drip. As the night progressed the patient developed more tachycardia and hypotension. Her abdominal pain that had been better earlier yesterday was becoming somewhat worse. She was transferred to the ICU this morning. A CAT scan was ordered by ICU and shows a few foci of air within the liver likely on the basis of portal venous gas. Pneumatosis was described. Patient yesterday and the day before had been against any surgical intervention. This morning she was stating to the nursing staff that she wanted to have surgery however. I discussed the case with the patient's family by phone while I was at the office this morning after hearing of the patient's change in desire for surgery. The likely operative findings and the associated risks and benefits of the surgery were reviewed in detail. After speaking with the family by phone at length with a stated that they agreed with the patient and they wanted to proceed with surgery at this time. Patient was just now seen at the bedside in the ICU. She is awake sitting up in bed. She has a nonrebreather on. She actually appears somewhat comfortable despite being dyspneic. She is on high doses of pressors at this time. Labs show significant acidosis. Discussed with patient and family again at length the proposed surgical procedure. We'll proceed with exploratory laparotomy. We'll assess the viability of the patient's small bowel and colon at this time. They understand that there may be intraoperative findings incompatible with meaningful recovery. In that event comfort measures may be our only option. Otherwise will plan on resection of the visibly ischemic segment. Most likely will require end ileostomy following resection. Other possibilities of re-anastomosis or leaving bowel is continuous with plans for short-term Second Look laparotomy with the options. This will be decided intraoperatively. Case also discussed this morning with Dr. Weeks from vascular surgery. She is here operating presently and will be available if needed for evaluation of the SMA for possible embolectomy. Risks of bleeding, infection, progressive ischemia, leak, abscess, profound sepsis, ostomy related complications including dehydration, respiratory and cardiac failure, long-term ventilatory support, [place], all reviewed. Patient and her family understand and wish to proceed.
--- NOTE | 2021-11-01 12:56 | P.OP ---
Date of Procedure: 11/01/21 Procedure(s) Performed: PREOPERATIVE DIAGNOSIS: Ischemic bowel POSTOPERATIVE DIAGNOSIS: Necrotic small bowel and proximal colon PROCEDURE: Exploratory laparotomy SURGEON: Gila EBL: 10 mL ANESTHESIA: Gen. COMPLICATIONS: None OPERATIVE PROCEDURE: Patient placed on the operative table in the supine position. The patient was placed under general anesthesia. A midline incision was made after the abdomen was prepped and draped sterilely. Entrance into the abdomen revealed serosanguineous fluid. The patient's small bowel immediately on evaluation was noted to have evidence of patchy necrosis throughout. The only viable portion of the patient's small intestine was the proximal 1-1.5 foot of jejunum. The cecum and ascending colon had ischemic changes as well. The transverse colon was decompressed without gross serosal ischemia. At that point I went to the ICU waiting room and spoke to the family. These findings were essentially incompatible with life. Options of comfort measures versus extended small bowel and colonic resection with end jejunostomy discussed. It was decided to proceed with comfort measures at this time. The fascia was closed using a running PDS suture. Skin was left open with sterile Kerlix roll overlying the open wound. Sterile dressings and abdominal binder applied. DISPOSITION: Critical to ICU. Findings discussed with Dr. Knight, Dr. Delarosa, and Dr. Martino.
--- NOTE | 2021-11-01 13:19 | P.CNPUL ---
History of Present Illness Consult date: 11/01/21 Requesting physician: Joe Knight Reason for consult: other (Acute abdomen, ICU care) Chief complaint: Abdominal pain History of present illness: This is an 86-year-old female with history of hypertension, Sjogren syndrome, admitted initially on 10/29/2021, mostly with complaints of abdominal pain. Initial CT of the abdomen was suggestive of small bowel obstruction. She was initially seen by Dr. Vega on consultation, her pain was described mostly in the lower abdomen and last bowel movement was about 3 days prior. She had one episode of vomiting and her last colonoscopy over 10 years ago was normal. Patient had no rectal bleeding. No melena. She did have elevated WBC count on admission. Patient is known to have history of significant peripheral vascular disease. She was seen by Dr. mora for a second opinion regarding her abdominal pain, and he felt strongly that the patient had ischemic bowel based on the fact that the patient had decreased contrast flowing distally through the superior mesenteric artery. In the meantime the patient was having less and less abdominal pain. And on 10/31 patient was seen again by Dr. mora and she was complaining of more abdominal pain and she was noted to be tachycardic overnight. On physical examination at that point patient had diffuse tenderness with moderate tenderness in the lower quadrants bilaterally. Further review of her CT of the abdomen and pelvis clearly was consistent with ischemia in the superior mesenteric artery distribution. There was evidence of colonic wall thickening and vascular surgery was consulted. Recommendation was to start heparin. In the meantime surgery was discussed with the family and with the patient, and clearly the patient did not want any surgical intervention whatsoever. Early this morning, patient developed worsening abdominal distention hypotension severe lactic acidosis and I was notified about this patient around 2 AM. Patient was transferred to the ICU and at that point I was notified about the patient being acidotic, developing worsening lactic acidosis worsening abdominal distention, worsening hypotension, and I recommended immediate surgical consultation I also recommended sodium bicarb drip, and more bicarb to be given, and clearly the patient is developing worsening bowel ischemia. Patient was already on antibiotics in the form of Flagyl and Levaquin. Patient is ALLERGIC to penicillin. Patient was reevaluated again this morning by Dr. mora and the patient as well as the family seemed to be agreeable to proceed with surgery. In the meantime I went ahead and established a central access in this patient by placing a right femoral triple-lumen catheter, and a left arterial line in the left femoral artery was also placed. Discussed her status with Dr. mora and he is planning to go ahead with expiratory laparotomy apparently shortly after the patient went to the OR, I was notified again by Dr. mora that the patient has evidence of patchy necrosis thr oughout her GI tract. The only viable portion was proximal 1 foot of jejunum. The cecum and ascending colon had ischemic changes as well. Dr. mora discussed the findings with the family and clearly stated to them that the findings are incompatible with life. And family now is willing to proceed with comfort care measures. Patient will be transferred back to the ICU for comfort care measures. And I was updated on these findings by Dr. mora Review of Systems CONSTITUTIONAL: Negative HEENT: Negative CARDIOVASCULAR: Negative PULMONARY: Negative GASTROINTESTINAL: As noted in HPI NEUROLOGICAL: Negative HEMATOLOGICAL: Negative. GENITOURINARY: Negative. MUSCULOSKELETAL/RHEUMATOLOGICAL: Negative ENDOCRINE: Negative Past Medical History Past Medical History: Hypertension, Pneumonia Additional Past Medical History / Comment(s): Sjogrens syndrome History of Any Multi-Drug Resistant Organisms: None Reported Past Surgical History: Hysterectomy Past Anesthesia/Blood Transfusion Reactions: No Reported Reaction Past Psychological History: No Psychological Hx Reported Smoking Status: Never smoker Past Alcohol Use History: Occasional Past Drug Use History: None Reported - Past Family History Father Family Medical History: Chest Pain / Angina Mother Additional Family Medical History / Comment(s): lived to be 92yrs old Medications and Allergies Home Medications Medication Instructions Recorded Confirmed Type Hydroxychloroquine Sulfate 400 mg PO DAILY 01/02/15 10/29/21 History [Plaquenil] Valsartan/Hydrochlorothiazide 1 tab PO DAILY 01/02/15 10/29/21 History [Diovan Hct 80-12.5 mg Tablet] Allergies Allergy/AdvReac Type Severity Reaction Status Date / Time amoxicillin Allergy Rash/Hives Verified 10/29/21 07:16 clindamycin Allergy Rash/Hives Verified 10/29/21 07:16 sulfamethoxazole Allergy Rash/Hives Verified 10/29/21 07:16 [From Bactrim] trimethoprim [From Bactrim] Allergy Rash/Hives Verified 10/29/21 07:16 Physical Exam Vitals: Vital Signs Temp Pulse Pulse Resp BP BP Pulse Ox 11/01/21 10:00 85 37 H 90 L 11/01/21 09:00 84 28 H 66/54 90 L 11/01/21 08:00 96.5 F L 87 39 H 95/55 90 L 11/01/21 07:52 92 L 11/01/21 06:00 89 44 H 116/76 95 11/01/21 05:00 37 H 157/120 96 11/01/21 04:00 97.2 F L 92 69 H 82/22 11/01/21 03:00 92 48 H 120/84 96 11/01/21 02:32 97 74/53 11/01/21 02:20 11/01/21 02:17 101 H 27 H 102/83 93 L 11/01/21 02:02 98 28 H 96 11/01/21 02:00 33 H 11/01/21 01:59 36 H 11/01/21 01:47 97.6 F 101 H 26 H 115/93 95 10/31/21 23:15 98 F 107 H 28 H 100/56 96 10/31/21 22:00 96.7 F L 105 H 29 H 113/55 97 10/31/21 20:43 98.3 F 112 H 28 H 133/62 96 10/31/21 16:52 102 H 16 139/61 94 L 10/31/21 14:00 95.1 F L 122 H 24 151/93 96 FiO2 11/01/21 10:00 11/01/21 09:00 11/01/21 08:00 11/01/21 07:52 50 11/01/21 06:00 11/01/21 05:00 11/01/21 04:00 11/01/21 03:00 11/01/21 02:32 11/01/21 02:20 50 11/01/21 02:17 11/01/21 02:02 11/01/21 02:00 11/01/21 01:59 11/01/21 01:47 10/31/21 23:15 10/31/21 22:00 10/31/21 20:43 10/31/21 16:52 10/31/21 14:00 Intake and Output 10/31/21 11/01/21 11/01/21 22:59 06:59 14:59 Intake Total 243.534 108 2862 Output Total 700 65 65 Balance -456.587 508 6440 Intake: IV 700 2700 Dextrose 5% in Water 1, 300 400 000 ml @ 100 mls/hr IV . [id number] ANY with Sodium Bicarb (1 Meq/ml) 150 ml Rx#:[id number] Sodium Chloride 0.9% 1, 400 1300 000 ml @ 100 mls/hr IV . Q10H ANY Rx#:[id number] Intake, IV Titration 123.221 200 Amount Heparin Sod,Pork in 0.45% 123.221 NaCl 25,000 unit In 0.45 % NaCl 1 250ml.bag @ 12 UNITS/KG/HR 5.503 mls/hr IV .Q24H ANY Rx#: [id number] Potassium Chloride 10 meq 100 In Water For Injection 1 100ml.bag @ 100 mls/hr IVPB Q1HR [facility] Rx#: [id number] metroNIDAZOLE-NS PMX 500 100 mg In Saline 1 100ml.bag @ 100 mls/hr IVPB Q8HR [facility] Rx#:[id number] Oral 120 Output: Urine 700 65 55 Estimated Blood Loss 10 Other: Voiding Method Indwelling Catheter Indwelling Catheter Indwelling Catheter GENERAL: Revealed 86-year-old female, frail looking, chronically ill, on Ventimask, slightly tachypneic. HEENT: PERRLA, EOMI, anicteric, no neck masses, no JVD.. CARDIOVASCULAR: Distant S1 and S2, no S3 gallop. 2/6 systolic murmur thought the precordium PULMONARY: Symmetrical chest expansion diminished breath sounds at the bases especially at the left base.. -ABDOMEN: Distended, tender throughout, diminished bowel sounds.. MUSCULOSKELETAL: No joint swelling or deformity. EXTREMITIES: No clubbing, no edema, no cyanosis NEUROLOGICAL: Alert and oriented 3 no gross focal deficits. SKIN: No rashes. Results - Laboratory Findings CBC and BMP: 11/01/21 02:07 11/01/21 02:07 ABG ABG pH 7.24 (7.35-7.45) L 11/01/21 09:49 ABG pCO2 44 mmHg (35-45) 11/01/21 09:49 ABG pO2 79 mmHg (83-108) L 11/01/21 09:49 ABG O2 Saturation 94.5 % (94-97) 11/01/21 09:49 PT/INR, D-dimer PT 12.7 sec (9.9-11.9) H 10/31/21 05:32 INR 1.16 (0.90-1.11) H 10/31/21 05:32 Abnormal lab findings: Abnormal Labs 10/29/21 10/29/21 10/29/21 01:46 01:46 09:30 WBC 19.1 H MCHC Immature Gran # Neutrophils # 17.2 H Lymphocytes # 0.7 L Monocytes # Eosinophils # PT INR APTT ABG pH ABG pO2 ABG HCO3 ABG Total CO2 ABG O2 Saturation Sodium 128 L Potassium 3.2 L Chloride 93 L Carbon Dioxide BUN 20 H Creatinine 0.49 L BUN/Creatinine Ratio Glucose 125 H POC Glucose (mg/dL) Plasma Lactic Acid Teja Calcium AST C-Reactive Protein 15.8 H Total Protein Albumin 3.2 L Albumin/Globulin Ratio Lipase 19 L Urine Protein 1+ H Urine Ketones 2+ H Urine Blood Large H Urine RBC 76 H Urine Mucus Occasional H 10/30/21 10/30/21 10/31/21 20:11 20:20 05:32 WBC 16.1 H 15.13 H MCHC 31.7 L Immature Gran # 0.14 H Neutrophils # 14.3 H 12.73 H Lymphocytes # 0.7 L 0.75 L Monocytes # 1.42 H Eosinophils # 0.01 L PT INR APTT 21.9 L ABG pH ABG pO2 ABG HCO3 ABG Total CO2 ABG O2 Saturation Sodium Potassium Chloride Carbon Dioxide BUN Creatinine BUN/Creatinine Ratio Glucose POC Glucose (mg/dL) Plasma Lactic Acid Teja Calcium AST C-Reactive Protein Total Protein Albumin Albumin/Globulin Ratio Lipase Urine Protein Urine Ketones Urine Blood Urine RBC Urine Mucus 10/31/21 10/31/21 10/31/21 05:32 05:32 13:51 WBC MCHC Immature Gran # Neutrophils # Lymphocytes # Monocytes # Eosinophils # PT 12.7 H INR 1.16 H APTT ABG pH ABG pO2 ABG HCO3 ABG Total CO2 ABG O2 Saturation Sodium Potassium 2.7 L* Chloride Carbon Dioxide 19.2 L BUN 8.3 L Creatinine 0.4 L BUN/Creatinine Ratio 21.89 H Glucose 63 L POC Glucose (mg/dL) 175 H Plasma Lactic Acid Teja Calcium 7.8 L AST C-Reactive Protein Total Protein 5.4 L Albumin 2.6 L Albumin/Globulin Ratio 0.93 L Lipase Urine Protein Urine Ketones Urine Blood Urine RBC Urine Mucus 10/31/21 10/31/21 10/31/21 14:39 14:39 14:39 WBC 15.9 H MCHC Immature Gran # Neutrophils # Lymphocytes # Monocytes # Eosinophils # PT INR APTT ABG pH ABG pO2 ABG HCO3 ABG Total CO2 ABG O2 Saturation Sodium 131 L Potassium 3.0 L Chloride Carbon Dioxide 20 L BUN Creatinine 0.51 L BUN/Creatinine Ratio Glucose 172 H POC Glucose (mg/dL) Plasma Lactic Acid Teja 3.3 H* Calcium 8.0 L AST C-Reactive Protein Total Protein 6.1 L Albumin 2.8 L Albumin/Globulin Ratio Lipase Urine Protein Urine Ketones Urine Blood Urine RBC Urine Mucus 10/31/21 10/31/21 10/31/21 17:09 18:21 20:22 WBC MCHC Immature Gran # Neutrophils # Lymphocytes # Monocytes # Eosinophils # PT INR APTT ABG pH ABG pO2 ABG HCO3 ABG Total CO2 ABG O2 Saturation Sodium Potassium Chloride Carbon Dioxide BUN Creatinine BUN/Creatinine Ratio Glucose POC Glucose (mg/dL) 161 H 139 H Plasma Lactic Acid Teja 2.3 H* Calcium AST C-Reactive Protein Total Protein Albumin Albumin/Globulin Ratio Lipase Urine Protein Urine Ketones Urine Blood Urine RBC Urine Mucus 10/31/21 11/01/21 11/01/21 21:00 00:01 01:45 WBC MCHC Immature Gran # Neutrophils # Lymphocytes # Monocytes # Eosinophils # PT INR APTT ABG pH ABG pO2 ABG HCO3 ABG Total CO2 ABG O2 Saturation Sodium Potassium Chloride Carbon Dioxide BUN Creatinine BUN/Creatinine Ratio Glucose POC Glucose (mg/dL) 112 H Plasma Lactic Acid Teja 3.1 H* 3.7 H* Calcium AST C-Reactive Protein Total Protein Albumin Albumin/Globulin Ratio Lipase Urine Protein Urine Ketones Urine Blood Urine RBC Urine Mucus 11/01/21 11/01/21 11/01/21 01:47 02:07 02:07 WBC 17.9 H MCHC Immature Gran # Neutrophils # Lymphocytes # Monocytes # Eosinophils # PT INR APTT ABG pH 7.17 L* ABG pO2 61 L ABG HCO3 14 L ABG Total CO2 15 L ABG O2 Saturation 85.2 L Sodium 133 L Potassium 3.4 L Chloride Carbon Dioxide 16 L BUN Creatinine BUN/Creatinine Ratio Glucose 111 H POC Glucose (mg/dL) Plasma Lactic Acid Teja Calcium 7.6 L AST 84 H C-Reactive Protein Total Protein 5.6 L Albumin 2.4 L Albumin/Globulin Ratio Lipase Urine Protein Urine Ketones Urine Blood Urine RBC Urine Mucus 11/01/21 11/01/21 11/01/21 02:07 02:07 04:32 WBC MCHC Immature Gran # Neutrophils # Lymphocytes # Monocytes # Eosinophils # PT INR APTT 125.6 H* ABG pH ABG pO2 ABG HCO3 ABG Total CO2 ABG O2 Saturation Sodium Potassium Chloride Carbon Dioxide BUN Creatinine BUN/Creatinine Ratio Glucose POC Glucose (mg/dL) Plasma Lactic Acid Teja 7.4 H* 7.4 H* Calcium AST C-Reactive Protein Total Protein Albumin Albumin/Globulin Ratio Lipase Urine Protein Urine Ketones Urine Blood Urine RBC Urine Mucus 11/01/21 11/01/21 08:37 09:49 WBC MCHC Immature Gran # Neutrophils # Lymphocytes # Monocytes # Eosinophils # PT INR APTT ABG pH 7.24 L ABG pO2 79 L ABG HCO3 19 L ABG Total CO2 ABG O2 Saturation Sodium Potassium Chloride Carbon Dioxide BUN Creatinine BUN/Creatinine Ratio Glucose POC Glucose (mg/dL) Plasma Lactic Acid Teja 5.5 H* Calcium AST C-Reactive Protein Total Protein Albumin Albumin/Globulin Ratio Lipase Urine Protein Urine Ketones Urine Blood Urine RBC Urine Mucus - Diagnostic Findings Chest x-ray: image reviewed (Chest x-ray showed bibasilar atelectasis and possible infiltrates with small pleural effusions) Additional studies: CT of the abdomen and pelvis as noted earlier in HPI. Assessment and Plan Assessment: Impression: Acute distal superior mesenteric artery occlusion Acute bowel ischemia Acute surgical abdomen Septic shock secondary to surgical abdomen and bowel ischemia Benign essential hypertension History of Sjogren syndrome History of peripheral vessel occlusive disease Recommendation: Continue present supportive care measures for now, however after discussing the findings with Dr. mora over the phone I believe it would be reasonable to proceed with comfort care measures once the patient is back in the ICU. Agree with comfort care measures Prognosis is extremely poor, will follow while in the ICU Time with Patient: Greater than 30
--- NOTE | 2021-11-01 13:25 | P.PN ---
Subjective Progress Note Date: 11/01/21 History of Present Illness This is a pleasant 86 years old female with past medical history of hypertension,Sjogrens syndrome Patient presents because of left lower quadrant abdominal pain about 10/10, currently/10 in severity with no nausea vomiting or diarrhea. No chest pain or dyspnea. No change in urine habits or dysuria. Currently she has a Weeks catheter. She denies smoking, alcohol or illicit tracts She's been afebrile. mild leukocytosis of 19.1, risks of cbc is unremarkable. sodium 128, potassium 3.2. lfts are unremarkable. urine analysis showing 2+ ketones large blood. CT of the abdomen and pelvis without contrast, which involved multiple dilated loops of small bowel with air-fluid levels small bowel feces in the presents of a nondistended colon distal ileum with significant other for partial versus early complete bowel obstruction 10/30: Repeat CAT scan of the abdomen and pelvis with contrast revealed dilated small bowel improved in the interval with maximal dimension at 2.9 cm. Contrast is seen within the right hemicolon. Wall thickening noted to involve the transverse colon which could reflect nonspecific colitis. Basilar pleural effusions and compressive atelectasis. Small amount of ascites. Patient has been afebrile, heart rate 98, blood pressure 126/81, pulse ox 92% on 2 L nasal cannula. Abdominal pain is improved. Patient is requesting a second opinion with Dr. Uriostegui and additional consult will be added today. Discharge plan is to return home possibly by tomorrow. 10/31: Patient was seen by Dr. Uriostegui a second opinion yesterday and started the patient on heparin drip for possible ischemic bowel and consult was added for vascular surgery. Dr. Uriostegui discussed condition, plan in detail with the patient and multiple family members at the bedside. Plan is for conservative management. Patient is currently on a clear liquid diet and tolerated. She is still having some lower quadrant abdominal pain and tenderness. Patient has been afebrile, heart rate in the 122, blood pressure 151/77, pulse ox 91% on 2 L nasal cannula. Repeat blood work reveals WBC 15.1, hemoglobin 12, platelet count 238. INR 1.1. Potassium 2.7 and will be replaced. BUN 8.3 creatinine 0.4. Due to sinus tachycardia this morning, patient was placed on cardiac cath lab manager and started on Lopressor 12.5 mg twice daily for now. 11/01: Yesterday afternoon, patient had a run of atrial fibrillation was transferred to the selective care unit. Later in the evening, lactic acid was increasing 3.1 despite IV fluids, patient was pallor, diaphoretic and short of breath, abdomen became firm and patient was transferred into the intensive care unit, consult added for traveling clerk. Patient went to the OR today with Dr. Uriostegui and found necrotic small bowel and proximal colon. Patient was closed and returned to the intensive care unit intubated on mechanical ventilation with plan for comfort care. Update was given to the family by both Dr. Uriostegui and Dr. Dr. Knight and patient will be transitioned to comfort care. Review of systems Unable to obtain due to intubation Physical examination GENERAL: The patient is a thin 86-year-old female, she is in the ICU bed, intubated and on mechanical ventilation.. HEENT: Pupils are round and equal. No scleral icterus. + conjunctival pallor. Normocephalic, atraumatic. CARDIOVASCULAR: S1 and S2 present. No murmurs, rubs, or gallops. PULMONARY: Chest is clear to auscultation, no wheezing or crackles. -ABDOMEN: Abdominal surgical wound present. Weeks catheter. MUSCULOSKELETAL: No joint swelling or deformity. EXTREMITIES: No cyanosis, clubbing, or pedal edema. NEUROLOGICAL: Patient is sedated. SKIN: No rashes. no petechiae. Assessment and plan 1. Abdominal pain secondary to ischemic bowel status post exploratory laparotomy finding necrotic small bowel and proximal colon. Patient be tr ansitioned to comfort care. 2. Abdominal sepsis with septic shock secondary to ischemic bowel. Patient was transferred into the intensive care unit. 3. Hypertension. Hold antihypertensives 4. Sjogren syndrome under the care of rheumatology. Discontinue Plaquenil 200 mg twice daily. 5. Hyponatremia presented with a sodium of 128, resolved. 6. Sinus Tachycardia secondary to sepsis. 7. Hypokalemia. Replaced. 8. GI prophylaxis. Protonix. 8. DVT prophylaxis. CODE STATUS: No code Impression and plan of care have been directed as dictated by the signing physician. Brittaney Hemphill nurse practitioner acting as scribe for signing physician. Objective - Vital Signs Vital signs: Vital Signs Temp 96.5 F L 11/01/21 08:00 Pulse 85 11/01/21 10:00 Resp 37 H 11/01/21 10:00 BP 66/54 11/01/21 09:00 Pulse Ox 90 L 11/01/21 10:00 FiO2 50 11/01/21 07:52 Intake & Output 10/31/21 11/01/21 11/01/21 18:59 06:59 18:59 Intake Total 120 139.833 9695 Output Total 300 465 50 Balance -180 170.055 6088 Intake: IV 700 1700 Dextrose 5% in Water 1, 300 400 000 ml @ 100 mls/hr IV . [id number] ANY with Sodium Bicarb (1 Meq/ml) 150 ml Rx#:[id number] Sodium Chloride 0.9% 1, 400 1300 000 ml @ 100 mls/hr IV . Q10H [facility] Rx#:[id number] Intake, IV Titration 123.221 200 Amount Heparin Sod,Pork in 0.45% 123.221 NaCl 25,000 unit In 0.45 % NaCl 1 250ml.bag @ 12 UNITS/KG/HR 5.503 mls/hr IV .Q24H [facility] Rx#: [id number] Potassium Chloride 10 meq 100 In Water For Injection 1 100ml.bag @ 100 mls/hr IVPB Q1HR [facility] Rx#: [id number] metroNIDAZOLE-NS PMX 500 100 mg In Saline 1 100ml.bag @ 100 mls/hr IVPB Q8HR [facility] Rx#:[id number] Oral 120 Output: Urine 300 465 50 Other: Voiding Method Indwelling Catheter Indwelling Catheter Indwelling Catheter - Labs CBC & Chem 7: 11/01/21 02:07 11/01/21 02:07 Labs: Abnormal Lab Results - Last 24 Hours (Table) 10/31/21 10/31/21 10/31/21 Range/Units 13:51 14:39 14:39 WBC 15.9 H (3.8-10.6) k/uL APTT (22.0-30.0) sec ABG pH (7.35-7.45) ABG pO2 (83-108) mmHg ABG HCO3 (21-25) mmol/L ABG Total CO2 (19-24) mmol/L ABG O2 Saturation (94-97) % Sodium 131 L (137-145) mmol/L Potassium 3.0 L (3.5-5.1) mmol/L Carbon Dioxide 20 L (22-30) mmol/L Creatinine 0.51 L (0.52-1.04) mg/dL Glucose 172 H (74-99) mg/dL POC Glucose (mg/dL) 175 H (70-110) mg/dL Plasma Lactic Acid Teja (0.7-2.0) mmol/L Calcium 8.0 L (8.4-10.2) mg/dL AST (14-36) U/L Total Protein 6.1 L (6.3-8.2) g/dL Albumin 2.8 L (3.5-5.0) g/dL 10/31/21 10/31/21 10/31/21 Range/Units 14:39 17:09 18:21 WBC (3.8-10.6) k/uL APTT (22.0-30.0) sec ABG pH (7.35-7.45) ABG pO2 (83-108) mmHg ABG HCO3 (21-25) mmol/L ABG Total CO2 (19-24) mmol/L ABG O2 Saturation (94-97) % Sodium (137-145) mmol/L Potassium (3.5-5.1) mmol/L Carbon Dioxide (22-30) mmol/L Creatinine (0.52-1.04) mg/dL Glucose (74-99) mg/dL POC Glucose (mg/dL) 161 H (70-110) mg/dL Plasma Lactic Acid Teja 3.3 H* 2.3 H* (0.7-2.0) mmol/L Calcium (8.4-10.2) mg/dL AST (14-36) U/L Total Protein (6.3-8.2) g/dL Albumin (3.5-5.0) g/dL 10/31/21 10/31/21 11/01/21 Range/Units 20:22 21:00 00:01 WBC (3.8-10.6) k/uL APTT (22.0-30.0) sec ABG pH (7.35-7.45) ABG pO2 (83-108) mmHg ABG HCO3 (21-25) mmol/L ABG Total CO2 (19-24) mmol/L ABG O2 Saturation (94-97) % Sodium (137-145) mmol/L Potassium (3.5-5.1) mmol/L Carbon Dioxide (22-30) mmol/L Creatinine (0.52-1.04) mg/dL Glucose (74-99) mg/dL POC Glucose (mg/dL) 139 H (70-110) mg/dL Plasma Lactic Acid Teja 3.1 H* 3.7 H* (0.7-2.0) mmol/L Calcium (8.4-10.2) mg/dL AST (14-36) U/L Total Protein (6.3-8.2) g/dL Albumin (3.5-5.0) g/dL 11/01/21 11/01/21 11/01/21 Range/Units 01:45 01:47 02:07 WBC 17.9 H (3.8-10.6) k/uL APTT (22.0-30.0) sec ABG pH 7.17 L* (7.35-7.45) ABG pO2 61 L (83-108) mmHg ABG HCO3 14 L (21-25) mmol/L ABG Total CO2 15 L (19-24) mmol/L ABG O2 Saturation 85.2 L (94-97) % Sodium (137-145) mmol/L Potassium (3.5-5.1) mmol/L Carbon Dioxide (22-30) mmol/L Creatinine (0.52-1.04) mg/dL Glucose (74-99) mg/dL POC Glucose (mg/dL) 112 H (70-110) mg/dL Plasma Lactic Acid Teja (0.7-2.0) mmol/L Calcium (8.4-10.2) mg/dL AST (14-36) U/L Total Protein (6.3-8.2) g/dL Albumin (3.5-5.0) g/dL 11/01/21 11/01/21 11/01/21 Range/Units 02:07 02:07 02:07 WBC (3.8-10.6) k/uL APTT 125.6 H* (22.0-30.0) sec ABG pH (7.35-7.45) ABG pO2 (83-108) mmHg ABG HCO3 (21-25) mmol/L ABG Total CO2 (19-24) mmol/L ABG O2 Saturation (94-97) % Sodium 133 L (137-145) mmol/L Potassium 3.4 L (3.5-5.1) mmol/L Carbon Dioxide 16 L (22-30) mmol/L Creatinine (0.52-1.04) mg/dL Glucose 111 H (74-99) mg/dL POC Glucose (mg/dL) (70-110) mg/dL Plasma Lactic Acid Teja 7.4 H* (0.7-2.0) mmol/L Calcium 7.6 L (8.4-10.2) mg/dL AST 84 H (14-36) U/L Total Protein 5.6 L (6.3-8.2) g/dL Albumin 2.4 L (3.5-5.0) g/dL 11/01/21 11/01/21 11/01/21 Range/Units 04:32 08:37 09:49 WBC (3.8-10.6) k/uL APTT (22.0-30.0) sec ABG pH 7.24 L (7.35-7.45) ABG pO2 79 L (83-108) mmHg ABG HCO3 19 L (21-25) mmol/L ABG Total CO2 (19-24) mmol/L ABG O2 Saturation (94-97) % Sodium (137-145) mmol/L Potassium (3.5-5.1) mmol/L Carbon Dioxide (22-30) mmol/L Creatinine (0.52-1.04) mg/dL Glucose (74-99) mg/dL POC Glucose (mg/dL) (70-110) mg/dL Plasma Lactic Acid Teja 7.4 H* 5.5 H* (0.7-2.0) mmol/L Calcium (8.4-10.2) mg/dL AST (14-36) U/L Total Protein (6.3-8.2) g/dL Albumin (3.5-5.0) g/dL
[2021-11-01] MEDS ORDERED: MORPHINE SULFATE (100 MG/2 ML) 100 MG in SODIUM CHLORIDE 0.9% 100 ML IV SCH (13:45)
[2021-11-01 14:26] VITALS: PULSE 89; RESP 13
--- NOTE | 2021-11-01 20:06 | OP ---
OPERATIVE REPORT OPERATIVE PROCEDURE: Placement of a right femoral triple-lumen catheter. PREOPERATIVE DIAGNOSIS: Acute abdomen and hypotension/septic shock. POSTOPERATIVE DIAGNOSIS: Acute abdomen and hypotension/septic shock. ANESTHESIA USED: Two mL of 1% lidocaine. PROCEDURE DESCRIPTION: The patient was placed in supine position. The area of the right groin was prepared in a sterile fashion and drapes were applied. The area was locally anesthetized, and the right femoral vein was easily cannulated. A guidewire was placed. A triple-lumen catheter was inserted over the guidewire, and the guidewire was removed. Good blood flow was noted in the 3 different ports of the triple-lumen catheter. Line was secured with 3.0 silk sutures. No complications. Procedure was well tolerated. MMODL / IJN: [id number] /
--- NOTE | 2021-11-01 20:12 | OP ---
OPERATIVE REPORT OPERATIVE REPORT: Placement of left femoral arterial line. PREOPERATIVE DIAGNOSIS: Acute surgical abdomen and septic shock. POSTOPERATIVE DIAGNOSIS: Acute surgical abdomen and septic shock. ANESTHESIA USED: None deployed. PROCEDURE DESCRIPTION: The left groin was prepared in a sterile fashion. Drapes were applied. The left femoral artery was palpated, cannulated, and a guidewire was placed. The area around the guidewire was dilated with a dilator. Then the femoral catheter was placed over the guidewire, and the guidewire was removed. Good blood flow and good waveform were noted. No complications. Line was secured using 3.0 silk sutures. MMODL / IJN: [id number] /
[2021-11-01] MEDS ORDERED: MEROPENEM 2 GM in SODIUM CHLORIDE 0.9% 100 ML IVPB SCH (21:00)
--- NOTE | 2021-11-02 07:19 | P.DS ---
Providers Date of admission: 10/29/21 05:23 Expected date of discharge: 11/02/21 Attending physician: Joe Knight Consults: 10/30/21 12:55 Consult Physician Routine Consulting Provider: Raúl Uriostegui Consult Reason/Comments: Bowel obstruction. second opinion patient req Do you want consulting provider notified?: Yes 10/30/21 19:59 Consult Physician Routine Consulting Provider: Aileen Weeks Consult Reason/Comments: Possible ischemic bowel. Do you want consulting provider notified?: Already Contacted 10/31/21 15:45 Consult Physician Urgent Consulting Provider: Gage Mccarthy Consult Reason/Comments: New onset A-fib Do you want consulting provider notified?: Yes 10/31/21 23:28 Consult Physician Urgent Consulting Provider: Ashlyn Mcbride Consult Reason/Comments: ICU management Do you want consulting provider notified?: Yes 11/01/21 07:30 Consult Physician Routine Consulting Provider: Robin Dickey Consult Reason/Comments: Oliguria Do you want consulting provider notified?: Yes, Notify in am Primary care physician: Joe Knight Hospital Course: History of Present Illness This is a pleasant 86 years old female with past medical history of hypertension,Sjogrens syndrome Patient presents because of left lower quadrant abdominal pain about 10/10, currently/10 in severity with no nausea vomiting or diarrhea. No chest pain or dyspnea. No change in urine habits or dysuria. Currently she has a Weeks catheter. She denies smoking, alcohol or illicit tracts She's been afebrile. mild leukocytosis of 19.1, risks of cbc is unremarkable. sodium 128, potassium 3.2. lfts are unremarkable. urine analysis showing 2+ ketones large blood. CT of the abdomen and pelvis without contrast, which involved multiple dilated loops of small bowel with air-fluid levels small bowel feces in the presents of a nondistended colon distal ileum with significant other for partial versus early complete bowel obstruction 10/30: Repeat CAT scan of the abdomen and pelvis with contrast revealed dilated small bowel improved in the interval with maximal dimension at 2.9 cm. Contrast is seen within the right hemicolon. Wall thickening noted to involve the transverse colon which could reflect nonspecific colitis. Basilar pleural effusions and compressive atelectasis. Small amount of ascites. Patient has been afebrile, heart rate 98, blood pressure 126/81, pulse ox 92% on 2 L nasal cannula. Abdominal pain is improved. Patient is requesting a second opinion with Dr. Uriostegui and additional consult will be added today. Discharge plan is to return home possibly by tomorrow. 10/31: Patient was seen by Dr. Uriostegui a second opinion yesterday and started the patient on heparin drip for possible ischemic bowel and consult was added for vascular surgery. Dr. Uriostegui discussed condition, plan in detail with the patient and multiple family members at the bedside. Plan is for conservative management. Patient is currently on a clear liquid diet and tolerated. She is still having some lower quadrant abdominal pain and tenderness. Patient has been afebrile, heart rate in the 122, blood pressure 151/77, pulse ox 91% on 2 L nasal cannula. Repeat blood work reveals WBC 15.1, hemoglobin 12, platelet count 238. INR 1.1. Potassium 2.7 and will be replaced. BUN 8.3 creatinine 0.4. Due to sinus tachycardia this morning, patient was placed on specialized developer and started on Lopressor 12.5 mg twice daily for now. 11/01: Yesterday afternoon, patient had a run of atrial fibrillation was transferred to the selective care unit. Later in the evening, lactic acid was increasing 3.1 despite IV fluids, patient was pallor, diaphoretic and short of breath, abdomen became firm and patient was transferred into the intensive care unit, consult added for licensed practical nurse instructor. Patient went to the OR today with Dr. Uriostegui and found necrotic small bowel and proximal colon. Patient was closed and returned to the intensive care unit intubated on mechanical ventilation with plan for comfort care. Update was given to the family by both Dr. Uriostegui and Dr. Dr. Knight and patient will be transitioned to comfort care. Patient on the afternoon of 11/01. Discharge Diagnoses 1. Abdominal pain secondary to ischemic bowel status post exploratory laparotomy finding necrotic small bowel and proximal colon. 2. Abdominal sepsis with septic shock secondary to ischemic bowel. 3. Hypertension. 4. Sjogren syndrome under the care of rheumatology. 5. Hyponatremia 6. Sinus Tachycardia secondary to sepsis. 7. Hypokalemia. Impression and plan of care have been directed as dictated by the signing physician. Brittaney Hemphill nurse practitioner acting as scribe for signing physician. Patient Condition at Discharge: Undetermined Plan - Discharge Summary Discharge Rx Participant: Yes New Discharge Prescriptions: No Action Valsartan/Hydrochlorothiazide [Diovan Hct 80-12.5 mg Tablet] 1 tab PO DAILY Hydroxychloroquine Sulfate [Plaquenil] 400 mg PO DAILY Discharge Medication List Hydroxychloroquine Sulfate [Plaquenil] 400 mg PO DAILY 01/02/15 [History] Valsartan/Hydrochlorothiazide [Diovan Hct 80-12.5 mg Tablet] 1 tab PO DAILY 01/02/15 [History] Follow up Appointment(s)/Referral(s): Joe Knight MD [Primary Care Provider] - 1 Week Discharge Disposition: - Preliminary Cause of Preliminary Cause of : ischemic bowel
[2021-11-02] MEDS ORDERED: LEVOFLOXACIN 750MG-D5W PMX 750 MG in DEXTROSE/WATER 1 150ML.BAG IVPB SCH (09:00)
== END 2021-11-01 14:15 | disposition expired | DRG 344 ==
LOC: EC 22:59 → 4SSUR 10-29 05:23 → 3SCARD 10-31 16:40 → 2SICU 11-01 01:35
PROVIDERS: ADMIT Internal Medicine; ATTEND Internal Medicine
PROC: 04HY32Z Insertion of Monitoring Device into Lower Artery, Percutaneous Approach (ICD-10-PCS; 2021-11-01)
PROC: 4A133B1 Monitoring of Arterial Pressure, Peripheral, Percutaneous Approach (ICD-10-PCS; 2021-11-01)
PROC: 4A133J1 Monitoring of Arterial Pulse, Peripheral, Percutaneous Approach (ICD-10-PCS; 2021-11-01)
PROC: 06HM33Z Insertion of Infusion Device into Right Femoral Vein, Percutaneous Approach (ICD-10-PCS; 2021-11-01)
PROC: 0DJD4ZZ Inspection of Lower Intestinal Tract, Percutaneous Endoscopic Approach (ICD-10-PCS; principal; 2021-11-01 09:45)
DX: K55.059 Acute (reversible) ischemia of intestine, part and extent unspecified (principal); A41.9 Sepsis, unspecified organism; R65.21 Severe sepsis with septic shock; E87.1 Hypo-osmolality and hyponatremia; K56.600 Partial intestinal obstruction, unspecified as to cause; E87.2 Acidosis; Z66 Do not resuscitate; Z51.5 Encounter for palliative care; K55.029 Acute infarction of small intestine, extent unspecified; I10 Essential (primary) hypertension; E87.6 Hypokalemia; M35.00 Sjogren syndrome, unspecified; I48.91 Unspecified atrial fibrillation; I73.9 Peripheral vascular disease, unspecified; R00.0 Tachycardia, unspecified; Z90.710 Acquired absence of both cervix and uterus; Z88.1 Allergy status to other antibiotic agents; Z88.2 Allergy status to sulfonamides; Z79.899 Other long term (current) drug therapy; Z87.891 Personal history of nicotine dependence; Z88.0 Allergy status to penicillin; Z87.01 Personal history of pneumonia (recurrent)
CPT/HCPCS: 36410; 36415; 36600; 71045; 74018; 74176; 74177; 76937; 80053; 81001; 82150; 82805; 83605; 83690; 84132; 85025; 85027; 85610; 85730; 86140; 87040; 93005; 94002; 96374; 99285